=== PATIENT | female | born 1940 | race Caucasian/White ===

== ENCOUNTER → 2017-05-28 11:27 | Outpatient (CLI) | payer MEDICARE, OTHER, SELFPAY ==
[2017-05-28 12:48] LABS: Absolute Lymphocyte Count 2.38 X10^3/ul (0.83-4.51); Absolute Neutrophil Count 5.3 X10^3/uL (2.0-7.7); Basophil# 0.02 X10^3/uL; Basophil% 0.2 % (0-1); Eosinophil# 0.09 X10^3/uL; Eosinophils% 1.1 % (0-5); Hematocrit 42.1 % (37-47); Lymphocyte # 2.38 X10^3/ul (4.0); Lymphocyte % 27.9 % (19-41); Mean Corp Hgb Conc 33.3 g/gl (32-36); Mean Corpuscular Hgb 32.1 pg (27.0-32.0); Mean Corpuscular Volume 96.6 fL (81-99); Mean Platelet Vol. 10.5 fl (6.2-12.0); Monocyte# 0.77 X10^3/uL; Neutrophil # 5.27 X10^3/uL (2.7-7.7); Neutrophil % 61.7 % (47-70); Platelet Count 273 K/mm3 (150-450); RBC Distribution Width CV 12.1 % (11.6-14.6); RBC Distribution Width SD 41.6 fl (35.1-43.9); Red Blood Count 4.36 M/mm3 (4.2-5.4); White Blood Count 8.5 K/mm3 (4.4-11.0)
[2017-05-28 13:00] LABS: POSITIVE COUNT NO; POSITIVE DIFFERENTIAL NO; POSITIVE MORPHOLOGY NO
[2017-05-28 13:09] LABS: Vitamin D,25 Hydroxy 44.4 ng/mL (29.95-100.01)
[2017-05-28 13:11] LABS: AST(SGOT) 18 U/L (15-37); Alanine Aminotransfer ALT/SGPT 21 U/L (13-56); Albumin, Serum 3.6 g/dL (3.2-5.0); Alkaline Phosphatase 175 U/L (45-117); Anion Gap 7 (5-15); BUN 11 mg/dL (7-18); BUN/Creat Ratio 14.5 RATIO (10-20); Calcium,Total 9.1 mg/dL (8.5-10.1); Chloride 105 mmol/L (98-107); Creatinine, Serum 0.76 mg/dL (0.55-1.02); EST Glomerular Filtration Rate 78 mL/min (>60); Est Glom Filt Rate - Afr Amer 95 mL/min (>60); Globulin 3.6 g/dL (2.2-4.2); Glucose 91 mg/dL (74-106); Potassium 3.7 mmol/L (3.5-5.1); Protein, Total 7.2 g/dL (6.4-8.2); Sodium Level 141 mmol/L (136-145); Thyroid Stim Hormone (TSH) 0.94 uIU/mL (0.358-3.74)
== END ==
PROVIDERS: Family Provider Family Medicine Geriatric Medicine; PCP Family Medicine Geriatric Medicine; Visit Provider Family Medicine Geriatric Medicine
DX: R53.83 Other fatigue (principal); E55.9 Vitamin D deficiency, unspecified
CPT/HCPCS: 36415; 80053; 82306; 84443; 85025

== ENCOUNTER → 2017-12-10 12:59 | Outpatient (CLI) | payer MEDICARE, OTHER, SELFPAY | PROVIDERS: Family Provider Family Medicine Geriatric Medicine; PCP Family Medicine Geriatric Medicine; Visit Provider Family Medicine Geriatric Medicine | DX: N39.0 Urinary tract infection, site not specified (principal) | CPT/HCPCS: 87086; 87088 ==

== ENCOUNTER → 2017-12-15 13:53 | Outpatient (CLI) | payer MEDICARE, OTHER, SELFPAY ==
[2017-12-15 17:39] LABS: Absolute Lymphocyte Count 3.03 X10^3/ul (0.83-4.51); Absolute Neutrophil Count 3.9 X10^3/uL (2.0-7.7); Basophil# 0.03 X10^3/uL; Basophil% 0.4 % (0-1); Eosinophils% 1.3 % (0-5); Hematocrit 43.9 % (37-47); Hemoglobin 14.8 g/dl (12.0-15.0); Lymphocyte # 3.03 X10^3/ul (4.0); Lymphocyte % 38.8 % (19-41); Mean Corp Hgb Conc 33.7 g/gl (32-36); Mean Corpuscular Hgb 31.9 pg (27.0-32.0); Mean Corpuscular Volume 94.6 fL (81-99); Mean Platelet Vol. 10.9 fl (6.2-12.0); Monocyte# 0.78 X10^3/uL; Neutrophil # 3.86 X10^3/uL (2.7-7.7); Neutrophil % 49.4 % (47-70); Platelet Count 260 K/mm3 (150-450); RBC Distribution Width CV 12.6 % (11.6-14.6); RBC Distribution Width SD 42.5 fl (35.1-43.9); Red Blood Count 4.64 M/mm3 (4.2-5.4); White Blood Count 7.8 K/mm3 (4.4-11.0)
[2017-12-15 17:42] LABS: POSITIVE COUNT NO; POSITIVE DIFFERENTIAL NO; POSITIVE MORPHOLOGY NO
[2017-12-15 18:13] LABS: AST(SGOT) 21 U/L (15-37); Alanine Aminotransfer ALT/SGPT 27 U/L (13-56); Alkaline Phosphatase 168 U/L (45-117); Anion Gap 10 (5-15); BUN 14 mg/dL (7-18); BUN/Creat Ratio 18.5 RATIO (10-20); Calcium,Total 9.4 mg/dL (8.5-10.1); Chloride 103 mmol/L (98-107); Creatinine, Serum 0.76 mg/dL (0.55-1.02); EST Glomerular Filtration Rate 79 mL/min (>60); Est Glom Filt Rate - Afr Amer 95 mL/min (>60); Globulin 3.9 g/dL (2.2-4.2); Glucose 84 mg/dL (74-106); Potassium 3.6 mmol/L (3.5-5.1); Protein, Total 7.9 g/dL (6.4-8.2); Sodium Level 142 mmol/L (136-145)
[2017-12-15 18:21] LABS: Vitamin D,25 Hydroxy 51.6 ng/mL (29.95-100.01)
== END ==
PROVIDERS: Family Provider Family Medicine Geriatric Medicine; PCP Family Medicine Geriatric Medicine; Visit Provider Family Medicine Geriatric Medicine
DX: R53.83 Other fatigue (principal); E55.9 Vitamin D deficiency, unspecified
CPT/HCPCS: 36415; 80053; 82306; 84443; 85025

== ENCOUNTER → 2018-03-30 13:38 | Outpatient (CLI) | payer MEDICARE, OTHER, SELFPAY ==
[2018-03-25 12:07] VITALS: BMI 27.8
--- NOTE | 2018-03-30 15:42 | CT_ITS ---
STUDY: CT BRAIN WITHOUT CONTRAST REASON FOR EXAM: Female, 78 years old. Delirium. History of stroke and seizures. RADIATION DOSAGE (If Supplied By Facility): CTDIvol = ( 60.81 ) mGy, DLP = ( 998.67 ) mGycm TECHNIQUE: Transaxial CT imaging of the brain was performed without administration of intravenous contrast material. Individualized dose optimization techniques were used for this CT. COMPARISON: Noncontrast CT brain October 18, 2015 FINDINGS: Normal soft tissue structures. Normal calvarium. Incidental note of severe osteoarthritic degenerative change at the left temporomandibular joint. There is mild cerebral atrophy with widening of the extra-axial spaces and ventricular dilatation. Normal white matter tracts of the cerebral hemispheres. Normal basal ganglia and thalami. Normal brainstem. Normal cerebellum. There is no intracranial hemorrhage. There are old cortical infarcts in the left frontal and posterior parietal lobes, the latter in particular associated with ex vacuo dilatation of the posterior horn of the left lateral ventricle. There are no findings of an acute ischemic infarction. There is a fluid level in the left sphenoid sinus. The remaining paranasal sinuses are clear. CT/Brain/Head without Contrast IMPRESSION: 1. Stable old left frontal and posterior parietal infarcts. No acute intracranial pathology. 2. There are chronic involutional changes of the brain. 3. Acute left sphenoid sinusitis. 4. 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 Electronically Signed: Contreras Boateng MD at 16:29 EST , Service support ,
[2018-03-30 18:15] LABS: ALB/GLOB Ratio 1.1 RATIO (0.9-2.4); AST(SGOT) 21 U/L (15-37); Alanine Aminotransfer ALT/SGPT 26 U/L (13-56); Albumin, Serum 3.8 g/dL (3.2-5.0); Alkaline Phosphatase 152 U/L (45-117); Anion Gap 8 (5-15); BUN 11 mg/dL (7-18); BUN/Creat Ratio 13.7 RATIO (10-20); Calcium,Total 9.1 mg/dL (8.5-10.1); Chloride 105 mmol/L (98-107); EST Glomerular Filtration Rate 73 mL/min (>60); Est Glom Filt Rate - Afr Amer 89 mL/min (>60); Globulin 3.4 g/dL (2.2-4.2); Glucose 110 mg/dL (74-106); Potassium 4.2 mmol/L (3.5-5.1); Protein, Total 7.2 g/dL (6.4-8.2); Sodium Level 140 mmol/L (136-145); Thyroid Stim Hormone (TSH) 0.92 uIU/mL (0.358-3.74)
[2018-03-30 18:16] LABS: Absolute Lymphocyte Count 2.38 X10^3/ul (0.83-4.51); Absolute Neutrophil Count 4.5 X10^3/uL (2.0-7.7); Basophil# 0.03 X10^3/uL; Basophil% 0.4 % (0-1); Eosinophils% 1.3 % (0-5); Hematocrit 44.1 % (37-47); Hemoglobin 14.6 g/dl (12.0-15.0); Lymphocyte # 2.38 X10^3/ul (4.0); Lymphocyte % 30.8 % (19-41); Mean Corp Hgb Conc 33.1 g/gl (32-36); Mean Corpuscular Hgb 31.8 pg (27.0-32.0); Mean Corpuscular Volume 96.1 fL (81-99); Mean Platelet Vol. 11.2 fl (6.2-12.0); Monocyte# 0.71 X10^3/uL; Monocyte% 9.2 % (0-10); Neutrophil % 58.2 % (47-70); Platelet Count 239 K/mm3 (150-450); RBC Distribution Width CV 12.8 % (11.6-14.6); RBC Distribution Width SD 44.1 fl (35.1-43.9); Red Blood Count 4.59 M/mm3 (4.2-5.4); White Blood Count 7.7 K/mm3 (4.4-11.0)
[2018-03-30 18:23] LABS: POSITIVE COUNT NO; POSITIVE DIFFERENTIAL NO; POSITIVE MORPHOLOGY NO
== END ==
PROVIDERS: Family Provider Family Medicine Geriatric Medicine; PCP Family Medicine Geriatric Medicine; Referring Provider Family Medicine Geriatric Medicine; Visit Provider Family Medicine Geriatric Medicine
DX: R53.83 Other fatigue (principal); R51 Headache; R41.0 Disorientation, unspecified
CPT/HCPCS: 36415; 70450; 80053; 84443; 85025

== ENCOUNTER → 2018-05-20 12:43 | Outpatient (CLI) | payer MEDICARE, OTHER, SELFPAY ==
[2018-03-25 12:07] VITALS: BMI 27.8
== END ==
PROVIDERS: Family Provider Family Medicine Geriatric Medicine; PCP Family Medicine Geriatric Medicine; Referring Provider Family Medicine Geriatric Medicine; Visit Provider Family Medicine Geriatric Medicine
DX: R68.83 Chills (without fever) (principal)
CPT/HCPCS: 87633

== ENCOUNTER → 2018-06-15 14:04 | Outpatient (CLI) | payer MEDICARE, OTHER, SELFPAY ==
[2018-03-25 12:07] VITALS: BMI 27.8
[2018-06-15 15:18] LABS: Absolute Lymphocyte Count 2.76 X10^3/ul (0.83-4.51); Absolute Neutrophil Count 4.2 X10^3/uL (2.0-7.7); Basophil# 0.02 X10^3/uL; Basophil% 0.3 % (0-1); Eosinophil# 0.12 X10^3/uL; Eosinophils% 1.5 % (0-5); Hematocrit 44.4 % (37-47); Hemoglobin 14.6 g/dl (12.0-15.0); Lymphocyte # 2.76 X10^3/ul (4.0); Lymphocyte % 35.4 % (19-41); Mean Corp Hgb Conc 32.9 g/gl (32-36); Mean Corpuscular Hgb 32.1 pg (27.0-32.0); Mean Corpuscular Volume 97.6 fL (81-99); Mean Platelet Vol. 10.6 fl (6.2-12.0); Monocyte# 0.72 X10^3/uL; Monocyte% 9.2 % (0-10); Neutrophil # 4.17 X10^3/uL (2.7-7.7); Neutrophil % 53.5 % (47-70); Platelet Count 243 K/mm3 (150-450); RBC Distribution Width CV 13.4 % (11.6-14.6); RBC Distribution Width SD 47.5 fl (35.1-43.9); Red Blood Count 4.55 M/mm3 (4.2-5.4); White Blood Count 7.8 K/mm3 (4.4-11.0)
[2018-06-15 15:23] LABS: POSITIVE COUNT NO; POSITIVE DIFFERENTIAL NO; POSITIVE MORPHOLOGY NO
[2018-06-15 15:47] LABS: ALB/GLOB Ratio 1.1 RATIO (0.9-2.4); AST(SGOT) 26 U/L (15-37); Alanine Aminotransfer ALT/SGPT 28 U/L (13-56); Albumin, Serum 3.8 g/dL (3.2-5.0); Alkaline Phosphatase 133 U/L (45-117); Anion Gap 8 (5-15); BUN 13 mg/dL (7-18); BUN/Creat Ratio 14.6 RATIO (10-20); Calcium,Total 9.2 mg/dL (8.5-10.1); Chloride 107 mmol/L (98-107); Creatinine, Serum 0.89 mg/dL (0.55-1.02); EST Glomerular Filtration Rate 65 mL/min (>60); Est Glom Filt Rate - Afr Amer 79 mL/min (>60); Globulin 3.5 g/dL (2.2-4.2); Glucose 114 mg/dL (74-106); Potassium 4.2 mmol/L (3.5-5.1); Protein, Total 7.3 g/dL (6.4-8.2); Sodium Level 144 mmol/L (136-145); Thyroid Stim Hormone (TSH) 0.76 uIU/mL (0.358-3.74)
[2018-06-15 16:13] LABS: Vitamin D,25 Hydroxy 48.5 ng/mL (29.95-100.01)
== END ==
PROVIDERS: Family Provider Family Medicine Geriatric Medicine; PCP Family Medicine Geriatric Medicine; Visit Provider Family Medicine Geriatric Medicine
DX: E55.9 Vitamin D deficiency, unspecified (principal); R53.83 Other fatigue
CPT/HCPCS: 36415; 80053; 82306; 84443; 85025

== ENCOUNTER 2018-09-18 21:43 | Emergency (ER) | payer MEDICARE, OTHER, SELFPAY ==
[2018-03-25 12:07] VITALS: BMI 27.8
[2018-09-18 21:51] VITALS: BP 137/61; PULSE 77; RESP 16; TEMP 36.9; O2SAT 95; BMI 28.4
[2018-09-18 21:55] VITALS: O2SAT 95
--- NOTE | 2018-09-18 22:34 | RAD_ITS ---
HISTORY: pain after fall COMPARISON: None FINDINGS: # of images incl. paperwork: 3 3 views of the lumbar spine. 3 views of the lumbar spine. Comparison study is from January 22, 2017. Findings: Posterior spinal fixation of the L3-L4 and L5 levels with fusion across the intervertebral disc spaces unchanged. Laminectomies at L3 and L4 are unchanged. Degenerative disc disease at the lower thoracic and the upper lumbar spine remain severe. Facet arthropathy remains. Atherosclerotic plaque within the abdominal aorta remains. Left hip prosthesis remains. RAD/Lumbar Spine 2 or 3 Views IMPRESSION: No change. Severe multilevel degenerative disc disease. Preservation of vertebral body height. Posterior spinal fixation with laminectomies unchanged. at 2338 Reported and signed by: Rigoberto Wiley MD Electronically Signed: Rigoberto Wilye MD at 23:37 EDT Tel , Service support ,
--- NOTE | 2018-09-18 22:34 | RAD_ITS ---
HISTORY: pain after fall COMPARISON: None FINDINGS: # of images incl. paperwork: 3 XR Wrist Min 3 Views : Bone mineral density is diminished. Arthritis is severe first carpometacarpal joint with joint space loss, subluxation, osteophytes, and corticated ossicles. No fractures perceived. RAD/Wrist min 3 Views IMPRESSION: No acute fracture or traumatic subluxation. Soft tissue swelling greater over the dorsum of the distal forearm. Osteoporosis. First carpometacarpal osteoarthritis. at 2355 Reported and signed by: Rigoberto Wiley MD Electronically Signed: Rigoberto Wiley MD at 23:54 EDT Tel , Service support ,
--- NOTE | 2018-09-18 23:10 | RAD_ITS ---
HISTORY: pain after fall EXAM: AP pelvis and 2 views of the left hip COMPARISON: None FINDINGS: # of images incl. paperwork: 3 Left total hip prosthesis remains in place. No evidence of dislocation or osseus fracture about the prosthesis. Extensive posterior spinal fixation surgery L3-L5 with fusion across the disc spaces and old laminectomies at L3 and L4. Severe right hip arthritis with erosion sclerosis and osteophytes. Enthesophytes on the ischial tuberosities. No sacral acute fractures are perceived. RAD/HIP, UNI W/ Pelvis 2-3 Views IMPRESSION: Left total hip prosthesis without acute fracture or dislocation. at 2356 Reported and signed by: Rigoberto Wiley MD Electronically Signed: Rigoberto Wiley MD at 23:55 EDT Tel , Service support ,
[2018-09-18] MEDS: Acetaminophen 500 MG Tablet 1000 MG PO (23:34)
--- NOTE | 2018-09-19 00:18 | ED.DCSUM_ITS ---
- ER Visit Summary Date of Service: 09/19/18 Chief Complaint: Left wrist and hip pain History of Present Illness: The patient is a 78 F who has left wrist and hip pain. Started today. She fell down 3 steps at home. She was walking backwards down the steps when she fell. She has pain in the left wrist and hip area. It radiates into her back. She denies any head trauma or LOC. She is on Plavix. She had a left hip replaced previously as well. Physical Examination: Vital signs reviewed. HEENT exam is atraumatic. Abdomen soft and nontender. Her lumbar spine is diffusely tender. She has some tenderness in the left hip and left wrist. She has painful range of motion of both joints. Her left leg is not shortened. Her GCS is 15. Her neurologic exam is normal. Test Results: X-rays of the left hip, wrist and lumbar spine reveal no evidence of fracture. There are degenerative joints and into these areas. Emergency Department Course and Treatment: The patient was given Tylenol and felt improved. She will ice any areas that are sore. She was ambulated in the emergency department. She will continue Tylenol at night at home. She will follow-up with her PCP. Treatment Plan: [] Disposition: Discharge Impression: Lumbar contusion, left hip contusion, left wrist sprain This note was generated with [employer] dictation software. It may contain incorrect words, spelling, and punctuation that were not noted in review of the chart prior to signing ED Disposition - Plan for ED Patient: Referrals: Rashawn Walsh Chi, MD [Primary Care Provider] -
--- NOTE | 2018-09-19 00:20 | ED.DEP ---
ED Disposition - Plan for ED Patient: Disposition: Home or Assisted Living Instructions: FALL, Mechanical Referrals: Rashawn Walsh Chi, MD [Primary Care Provider] -
[2018-09-19 00:48] VITALS: BP 126/91; PULSE 71; RESP 15; O2SAT 95
== END 2018-09-19 00:49 | disposition home or self-care (01) ==
PROVIDERS: Emergency Provider Emergency Medicine; Family Provider Family Medicine Geriatric Medicine; PCP Family Medicine Geriatric Medicine
DX: S63.502A Unspecified sprain of left wrist, initial encounter (principal); S30.0XXA Contusion of lower back and pelvis, initial encounter; S70.02XA Contusion of left hip, initial encounter; W10.9XXA Fall (on) (from) unspecified stairs and steps, initial encounter; Y93.01 Activity, walking, marching and hiking; Y92.9 Unspecified place or not applicable; Y99.9 Unspecified external cause status; F03.90 Unspecified dementia, unspecified severity, without behavioral disturbance, psychotic disturbance, mood disturbance, and anxiety; K21.9 Gastro-esophageal reflux disease without esophagitis; Z79.02 Long term (current) use of antithrombotics/antiplatelets; Z79.899 Other long term (current) drug therapy; Z86.73 Personal history of transient ischemic attack (TIA), and cerebral infarction without residual deficits; Z96.642 Presence of left artificial hip joint
CPT/HCPCS: 72100; 73110; 73502; 99284; A4216

== ENCOUNTER → 2018-09-28 14:33 | Outpatient (CLI) | payer MEDICARE, OTHER, SELFPAY ==
[2018-09-18 21:51] VITALS: BMI 28.4
--- NOTE | 2018-09-28 14:45 | CT_ITS ---
STUDY: LEFT HIP CT SCAN REASON FOR EXAM: Female, 78 years old. Left hip pain. Fall. RADIATION DOSAGE (If Supplied By Facility): CTDIvol = ( 19.20 ) mGy, DLP = ( 823.37 ) mGycm. Individualized dose optimization techniques were used for this CT.? TECHNIQUE: Axial multidetector CT scan of the left hip. Coronal and sagittal recommend images. COMPARISON: September 18, 2018. FINDINGS: Acute/subacute nondisplaced left inferior pubic ramus fracture (axial image 85 series 3). Acute/subacute nondisplaced left superior pubic ramus fracture extending to the anterior medial margin of the left acetabulum (axial images 62 through 71 series 3 and coronal image 40 series 602). No dislocation. No acute cortical destruction. Left hip arthroplasty intact/well aligned. No evidence of hardware failure loosening. Moderate pubic symphysis arthrosis. Mild sacroiliac joint arthrosis. Moderate lumbar spine arthrosis with multilevel laminectomy and surgical fixation. Mild soft tissue swelling at the left hip without focal hematoma or active bleeding. Mild soft tissue swelling at the left adductor muscles. Mild soft tissue swelling at the left obturator internus. Left gluteus minimus muscle atrophy. Surgical scar. Vascular calcifications. Slightly atrophic uterus. Normal urinary bladder. Normal visualized portions of the bowel. CT/Extremity Lower without Contra IMPRESSION: Acute/subacute nondisplaced left superior and inferior pubic ramus fractures Left hip arthroplasty intact/well aligned without hardware failure or loosening Soft tissue and muscle edema without significant hematoma or active bleeding Mild left gluteus minimus muscle atrophy Additional degenerative/postsurgical changes, as above Electronically Signed: Hollis Gil DO at 15:34 EDT Tel , Service support ,
--- NOTE | 2018-09-28 14:46 | RAD_ITS ---
STUDY: X-RAY - LEFT KNEE REASON FOR EXAM: Female, 78 years old. Fall. Pain. TECHNIQUE: 3 view(s) of the knee. COMPARISON: None. FINDINGS: There is no evidence of fracture or dislocation. The patient is status post left knee arthroplasty. The hardware is intact and alignment is satisfactory. There are no radiodense foreign bodies. RAD/Knee 3 Views IMPRESSION: Status post left knee arthroplasty with intact hardware in satisfactory alignment. No fracture or dislocation. Electronically Signed: Andreas Harmon, at 17:46 EDT Tel , Service support ,
== END ==
PROVIDERS: Family Provider Family Medicine Geriatric Medicine; PCP Family Medicine Geriatric Medicine; Referring Provider Family Medicine Geriatric Medicine; Visit Provider Family Medicine Geriatric Medicine
DX: N39.0 Urinary tract infection, site not specified (principal); M25.569 Pain in unspecified knee; M25.559 Pain in unspecified hip
CPT/HCPCS: 73562; 73700; 87086; 87088

== ENCOUNTER → 2018-12-16 13:38 | Outpatient (CLI) | payer MEDICARE, OTHER, SELFPAY ==
[2018-12-16 15:42] LABS: Absolute Lymphocyte Count 2.31 X10^3/uL (0.83-4.51); Absolute Neutrophil Count 5.3 X10^3/uL (2.0-7.7); Basophil# 0.03 X10^3/uL; Basophil% 0.3 % (0-1); Eosinophil# 0.09 X10^3/uL; Hematocrit 46.2 % (37-47); Hemoglobin 14.7 g/dL (12.0-15.0); Lymphocyte # 2.31 X10^3/ul (4.0); Lymphocyte % 26.6 % (19-41); Mean Corp Hgb Conc 31.8 g/dL (32-36); Mean Corpuscular Hgb 31.1 pg (27.0-32.0); Mean Corpuscular Volume 97.9 fL (81-99); Mean Platelet Vol. 11.1 fl (6.2-12.0); Monocyte# 0.98 X10^3/uL; Monocyte% 11.3 % (0-10); NRBC Flagged by Analyzer 0 % (0-5); Neutrophil # 5.27 X10^3/uL (2.7-7.7); Neutrophil % 60.6 % (47-70); Platelet Count 260 K/mm3 (150-450); RBC Distribution Width CV 12.2 % (11.6-14.6); RBC Distribution Width SD 44.3 fl (35.1-43.9); Red Blood Count 4.72 M/mm3 (4.2-5.4); White Blood Count 8.7 K/mm3 (4.4-11.0)
[2018-12-16 16:05] LABS: AST(SGOT) 23 U/L (15-37); Alanine Aminotransfer ALT/SGPT 31 U/L (13-56); Albumin, Serum 3.7 g/dL (3.2-5.0); Alkaline Phosphatase 201 U/L (45-117); Anion Gap 7 (5-15); BUN 13 mg/dL (7-18); BUN/Creat Ratio 16.6 RATIO (10-20); Calcium,Total 9.3 mg/dL (8.5-10.1); Chloride 104 mmol/L (98-107); Creatinine, Serum 0.78 mg/dL (0.55-1.02); EST Glomerular Filtration Rate 75 mL/min (>60); Est Glom Filt Rate - Afr Amer 91 mL/min (>60); Globulin 3.8 g/dL (2.2-4.2); Glucose 75 mg/dL (74-106); Potassium 3.9 mmol/L (3.5-5.1); Protein, Total 7.5 g/dL (6.4-8.2); Sodium Level 143 mmol/L (136-145); Thyroid Stim Hormone (TSH) 1.03 uIU/mL (0.358-3.74)
== END ==
PROVIDERS: Family Provider Family Medicine Geriatric Medicine; PCP Family Medicine Geriatric Medicine; Visit Provider Family Medicine Geriatric Medicine
DX: E55.9 Vitamin D deficiency, unspecified (principal); R53.83 Other fatigue
CPT/HCPCS: 36415; 80053; 82306; 84443; 85025

== ENCOUNTER → 2019-05-24 16:30 | Outpatient (CLI) | payer MEDICARE, SELFPAY | PROVIDERS: PCP Family Medicine Geriatric Medicine; Visit Provider Family Medicine Geriatric Medicine | DX: N39.0 Urinary tract infection, site not specified (principal) | CPT/HCPCS: 87086; 87088; 87186 ==

== ENCOUNTER → 2020-01-03 | Outpatient (CLI) | payer MEDICARE, SELFPAY ==
[2020-01-03 14:44] VITALS: BMI 28.4
[2020-01-03 14:55] LABS: Bacteria 0 SEEN /hpf (None Seen); Red Blood Cells-Urine 0 SEEN /hpf (0-5)
[2020-01-03 17:25] LABS: Color, Urine Yellow (Yellow); Glucose, Dipstick Normal (Normal); Ketone-Dipstick Negative (Negative); Leukocyte Esterase-Dipstick 100 /ul (Negative); Nitrite-Dipstick Negative (Negative); Occult Blood-Urine 25 /ul (Negative); Protein-Dipstick 15 mg/dl (Negative); Urine Bilirubin Dipstick Negative (Negative); Urine Clarity Clear (Clear); Urine Urobilinogen Normal (Normal)
[2020-01-03 17:47] LABS: Mucous, Urine 1+ /hpf (<or=2+); Squamous Epithelial Cells - UA 0-5 SEEN /hpf (5-10); White Blood Cells 0-5 SEEN /hpf (0-5)
== END | disposition home or self-care (01) ==
LOC: LABSPEC 14:54
PROVIDERS: PCP Internal Medicine; Referring Provider Internal Medicine; Visit Provider Internal Medicine
DX: R30.0 Dysuria (principal); R35.0 Frequency of micturition
CPT/HCPCS: 81001; 87086

== ENCOUNTER 2020-01-04 14:19 | Inpatient (IN) | payer MEDICARE, SELFPAY ==
[2020-01-03 14:44] VITALS: BMI 28.4
[2020-01-04] VITALS (7 sets, daily range): BP systolic 114–138; BP diastolic 64–88; PULSE 87–110; RESP 16–22; TEMP 35.9–36.9; O2SAT 94–98; BMI 28.0; BMI 27.2
--- NOTE | 2020-01-04 14:31 | CT_ITS ---
STUDY: CT BRAIN WITHOUT CONTRAST REASON FOR EXAM: Female, 79 years old. FALL, +LOC, HX-HEMORRHAGIC STROKE RADIATION DOSAGE (If Supplied By Facility): CTDIvol = ( 44.99 ) mGy, DLP = ( 728.62 ) mGycm TECHNIQUE: Transaxial CT imaging of the brain was performed without administration of intravenous contrast material. Individualized dose optimization techniques were used for this CT. COMPARISON: Comparison is made with prior study dated 03/30/2018. FINDINGS: Normal soft tissue structures. Normal calvarium. There is mild cerebral atrophy with widening of the extra-axial spaces and ventricular dilatation. There are areas of decreased attenuation within the white matter tracts of the supratentorial brain, consistent with microvascular disease changes. Stable encephalomalacia in the right temporal lobe as well as in the posterior aspect of the left parietal occipital lobe and left frontal lobe. Normal basal ganglia and thalami. Normal brainstem. Normal cerebellum. There is no intracranial hemorrhage. There are no findings of an acute ischemic infarction. Small amount of fluid in the left sphenoid sinus. CT/Brain/Head without Contrast IMPRESSION: Stable examination. Electronically Signed: Theo Weller, at 15:49 EDT , Service support ,
--- NOTE | 2020-01-04 14:31 | EKG12_ITS ---
Test Reason : FALL Blood Pressure : / mmHG Vent. Rate : 091 BPM Atrial Rate : 091 BPM P-R Int : 098 ms QRS Dur : 076 ms QT Int : 388 ms P-R-T Axes : 024 065 071 degrees QTc Int : 477 ms Sinus rhythm with short [place] Nonspecific ST abnormality Abnormal ECG Confirmed by ANNA STAFFORD, RIGO ([id number]), production editor YE CABRERA ([id number]) on 01/10/2020 8:48:39 A M Referred By: ENOCH Confirmed By:JEFFRY CASTILLO MD
--- NOTE | 2020-01-04 14:33 | ED.DCSUM_ITS ---
History of Present Illness Chief Complaint: Fall Informant: Patient, Significant Other Onset: Today, Hours - Fell at 0930. She is been on the floor since that time according the . She is not a good informant. Mechanism/Context: Blunt Injury, Fall Quality of Pain: Dull, Aching, Throbbing Location: Right hip, right leg and head Current Severity: Mild Maximum Severity: Severe Worsened by: Attempt to weight bear right lower extremity Relieved by: Nothing Associated Symptoms: Inability to ambulate, Loss of consciousness, Amnesia Length of loss of consciousness: Brief Narrative: Patient is a 79-year-old woman who presents to the emergency room after mechanical fall at 0930. states he made many attempts to get her up from the floor, and he was unsuccessful. There was loss of conscious. She is amnestic. She does complain of head pain. She is on Plavix. She states she saw a bolt of lightening after hitting her head. She denies neck pain. She denies chest pain or shortness of breath. She denies nausea or vomiting. She denies urinary symptoms. She does complain of right hip pain and right leg pain. She denies paresthesia, anesthesia or motor weakness. Prior similar symptoms: No Recent Illness/Hospitalization: No - Past Medical History (1) Depression Status: Acute (2) Other and unspecified hyperlipidemia Status: Acute (3) CVA (cerebral vascular accident) Status: Chronic (4) DDD (degenerative disc disease), lumbar Status: Chronic (5) Hyperlipidemia Status: Chronic (6) Osteoarthritis Status: Chronic (7) Short-term memory loss Status: Chronic (8) history of hemorrhagic stroke Status: Chronic Comment: 11/2009 Past Medical History - Allergies and Home Meds Allergies/Adverse Reactions: Allergies No Known Allergies Allergy (Verified 01/04/20 14:28) Primary Care Physician: Geovanna Hurtado MD [Primary Care Provider] - Prior records reviewed: Yes Surgical History: noncontributory Lives: Spouse/ Significant Other Smoking Status: Former smoker Alcohol: None Drugs: None Review of Systems ROS: Unable to Obtain - Limited secondary to memory impairment General: Denies: Chills, Fever Eyes: Reports: - - Saw a bolt of lightening. Denies: Visual changes - bilaterally, Blurred Vision - bilaterally ENT: Denies: Rhinorrhea, Sore throat Cardiovascular: Denies: Chest pain, Palpitations Respiratory: Denies: Dyspnea, Cough, Dyspnea on exertion Gastrointestinal: Denies: Abdominal pain, Nausea, Vomiting Genitourinary: Denies: Dysuria, Hematuria, Frequency Musculoskeletal: Reports: Extremity Pain. Denies: Neck pain, Back pain, Swelling Neurological: Reports: Headache. Denies: Weakness, Parasthesia Psych: Reports: Depression, Anxiety Endocrine: Denies: Polyuria, Polydipsia Hematologic: Reports: Easy bruising Physical Exam Vital Signs/Narrative: Vital Signs Temp Pulse Resp BP Pulse Ox 01/04/20 14:20 96.7 F L 91 22 H 138/86 H 96 Inital Vital Signs reviewed: Yes General: Well nourished, Well developed Head: Normocephalic, Trauma, Tenderness - Forehead near hairline, - - No clinical evidence of basilar skull fracture. Eyes: Perrl, EOMI, - - No subconjunctival hemorrhage.. Negative for: Pale conjunctiva, Scleral icterus ENT: TM's clear, No hemotympanum or drainage, No trauma. Negative for: Hemotympanum, Otorrhea, Nasal trauma, Nasal septal hematoma Neck: Nontender, Full ROM. Negative for: Spinal Tenderness, Paraspinal Tenderness Cardiovascular: Regular rate, Regular rhythm, No murmurs, Normal S1, Normal S2 Respiratory: No distress, CTA bilaterally, Chest nontender Abdomen: Soft, Nontender, Nondistended, Normal bowel sounds, - - Is no pain the patient of the pelvis. Rectal: Deferred Back: Nontender. Negative for: CVA Tenderness - Right, CVA Tenderness - Left Extremeties: There is pain palpation over the right her greater trochanteric region and she complains of pain she localized to the hip region with logrolling. There appears to be slight shortening of the right lower extremity. There is no pain the patient of the the thigh. There is no pain the patient of the knee. The patella is not ballotable. There is no effusion. There is no joint line tenderness. There is no evidence of trauma. Patient does have a large bruise over the mid anterior right leg with tenderness over the right tibia and fibula. There is no pain the patient over the lateral mid malleolus. Is no pain ovation over the calcaneus, midfoot, tarsal bones or phalanges. DP and PT pulse are palpable. Skin: Normal color, No rash, Trauma. Negative for: Cyanosis, Diaphoresis, Jaundice Neurological: Cranial nerves II-XII grossly intact, Normal Strength, Normal Sensation. Negative for: Alert, Oriented x3 Psychological: Depressed - Glascow Coma Scale Eye Opening: Spontaneous Motor: Obeys Commands Verbal: Confused Coma Scale Total: 14 Diagnostic/Tx/Re-eval Impressions Brain CT 01/04/20 14:31 IMPRESSION: Stable examination. Electronically Signed: Theo Janee, at 15:49 EDT , Service support , Hip/Pelvis X-Ray 01/04/20 14:33 IMPRESSION: Marked degree of joint space narrowing involving the right hip joint with marginal degenerative spurs of the femoral head. The patient is status post left hip replacement. Electronically Signed: Theo Weller, at 15:50 EDT , Service support , Tibia/Fibula X-Ray 01/04/20 14:33 IMPRESSION: No acute abnormality is seen. Electronically Signed: Theo Weller, at 15:51 EDT , Service support , Chest X-Ray 01/04/20 17:08 IMPRESSION: Normal x-ray examination of the chest. Electronically Signed: Noe Dey MD at 17:27 EDT Tel , Service support , 01/04/20 14:31 Brain/Head without Contrast [CT] Stat 01/04/20 14:33 HIP, UNI W/ Pelvis 2-3 Views [RAD] Stat Tibia & Fibula 2 Views [RAD] Stat 01/04/20 17:08 Chest 1 View (Portable) [RAD] Stat Laboratory Results 01/04/20 01/04/20 01/04/20 14:50 14:50 14:50 WBC 21.4 H RBC 4.10 L Hgb 13.0 Hct 40.0 MCV 97.6 MCH 31.7 MCHC 32.5 RDW Std Deviation 44.5 H RDW Coeff of Marlena 12.2 Plt Count 288 MPV 10.6 Immature Gran % (Auto) 0.700 Neut % (Auto) 87.7 H Lymph % (Auto) 5.8 L [place] % (Auto) 5.3 Eos % (Auto) 0.4 Baso % (Auto) 0.1 Absolute Neuts (auto) 18.8 H Absolute Lymphs (auto) 1.25 Nucleated RBC % 0 Sodium 142 Potassium 3.6 Chloride 109 H Carbon Dioxide 24.0 Anion Gap 9 BUN 19 H Creatinine 1.07 H Estim Creat Clear Calc 33.72 Est GFR (MDRD) Af Amer 64 Est GFR (MDRD) Non-Af 53 L BUN/Creatinine Ratio 17.8 Glucose 175 H Lactic Acid Calcium 9.5 Total Creatine Kinase 357 H Urine Color Urine Clarity Urine pH Ur Specific [place] Urine Protein Urine Glucose (UA) Urine Ketones Urine Occult Blood Urine Nitrite Urine Bilirubin Urine Urobilinogen Ur Leukocyte Esterase Urine RBC Urine WBC Ur Squamous Epith Cells Calcium Oxalate Crystal Amorphous Sediment Urine Bacteria Hyaline Casts Urine Mucus 01/04/20 01/04/20 15:57 16:15 WBC RBC Hgb Hct MCV MCH MCHC RDW Std Deviation RDW Coeff of [place]len[place] Plt Count MPV Immature Gran % (Auto) Neut % (Auto) Lymph % (Auto) [place] % (Auto) Eos % (Auto) Baso % (Auto) Absolute Neuts (auto) Absolute Lymphs (auto) Nucleated RBC % Sodium Potassium Chloride Carbon Dioxide Anion Gap BUN Creatinine Estim Creat Clear Calc Est GFR (MDRD) Af Amer Est GFR (MDRD) Non-Af BUN/Creatinine Ratio Glucose Lactic Acid 3.9 H* Calcium Total Creatine Kinase Urine Color Yellow Urine Clarity Clear Urine pH 5.0 Ur Specific [place] 1.030 Urine Protein 30 H Urine Glucose (UA) Normal Urine Ketones 5 H Urine Occult Blood 10 H Urine Nitrite Negative Urine Bilirubin Negative Urine Urobilinogen Normal Ur Leukocyte Esterase Negative Urine RBC 0 SEEN Urine WBC 0-5 SEEN Ur Squamous Epith Cells 0 SEEN Calcium Oxalate Crystal 1+ Amorphous Sediment 1+ Urine Bacteria 0 SEEN Hyaline Casts 0-5 SEEN Urine Mucus 0 SEEN The cause of patient's leukocytosis is unknown. There is no evidence of rhabdomyolysis. Patient does have a lactate of 3.9. She is on no medications that would explain this. Because of the elevated lactate and white count blood cultures were obtained. Since she is afebrile not tachypneic, not tachycardic antibiotics were not initiated. Patient is unable to ambulate. Since patient is unable to ambulate with elevated white count lactate the hospitalist was paged for observation status and consult to PT/OT. - EKG Initial EKG Interpretation: Sinus Rhythm - Normal sinus rhythm with a short MS interval. Ventricular rate is 91. MS interval is 98 ms. QRS duration 76 ms. QT duration 388 ms. [place] is normal. The computer is reading and ossific changes which is motion artifact. - Medical Decision Making With history of headache, loss of consciousness, on antiplatelet meds and GCS of [address] of the head to rule out intracranial bleed i.e. subdural, epidural, traumatic subarachnoid hemorrhage or contusion. X-ray of the right lower extremity was obtained to evaluate for fracture of the hip and tibia/fibula. Blood work was obtained. Will obtain CPK to evaluate for rhabdomyolysis since she has been on the floor since 929. ED Disposition - Plan for ED Patient: Disposition: Acute Care [facility] Diagnosis: Leukocytosis, Lactic acidosis, Unable to ambulate, Closed head injury, Contusion of right lower leg, initial encounter, Contusion of right hip, initial encounter Referrals: Geovanna Hurtado MD [Primary Care Provider] -
--- NOTE | 2020-01-04 14:33 | RAD_ITS ---
STUDY: X-RAY - RIGHT TIBIA AND FIBULA REASON FOR EXAM: Female, 79 years old. PER , PT FELL AROUND 0930 RETURNING FROM ROOM TO BATHROOM. PT STATED and quot;I SAW A BOLT OF LIGHTNING and quot; TECHNIQUE: 4 view(s) of the tibia and fibula were obtained. COMPARISON: None. FINDINGS: Normal visualized tibia. Normal visualized fibula. Chondrocalcinosis of the lateral meniscus. Small bony densities are seen overlying the lateral knee joint. These may represent intra-articular loose bodies. The soft tissue structures are unremarkable. RAD/Tibia & Fibula 2 Views IMPRESSION: No acute abnormality is seen. Electronically Signed: Theo Weller, at 15:51 EDT , Service support ,
--- NOTE | 2020-01-04 14:33 | RAD_ITS ---
STUDY: X-RAY - PELVIS AND RIGHT HIP REASON FOR EXAM: Female, 79 years old. PER , PT FELL AROUND 0930 RETURNING FROM ROOM TO BATHROOM. PT STATED and quot;I SAW A BOLT OF LIGHTNING and quot; TECHNIQUE: 3 views of the pelvis and hip. COMPARISON: None. FINDINGS: Moderate amount of fecal material is seen in the colon. Status post laminectomy and fusion in the lower lumbar spine. Normal bilateral iliac wings, sacroiliac joints and visualized sacrum. Normal bilateral superior and inferior pubic rami. There are degenerative changes of the pubic symphysis with articular narrowing and sclerosis. Normal bilateral ischial tuberosities. There are osteoarthritic changes of the femoral head with marginal osteophyte formation. There is cortical sclerosis with sub-cortical cyst formation of the acetabulum. is severe articular joint space narrowing of the hip. RAD/HIP, UNI W/ Pelvis 2-3 Views IMPRESSION: Marked degree of joint space narrowing involving the right hip joint with marginal degenerative spurs of the femoral head. The patient is status post left hip replacement. Electronically Signed: Theo Weller, at 15:50 EDT , Service support ,
[2020-01-04] MEDS: Morphine 4 MG/ML Syringe IV (14:59)
[2020-01-04] MEDS: 0.9% Normal Saline 1,000 ML 150 ML IV (15:01)
[2020-01-04] MEDS: Ondansetron 4 MG/2 ML Vial IV (15:03)
[2020-01-04 15:11] LABS: Absolute Lymphocyte Count 1.25 X10^3/uL (0.83-4.51); Absolute Neutrophil Count 18.8 X10^3/uL (2.0-7.7); Basophil# 0.03 X10^3/uL; Basophil% 0.1 % (0-1); Eosinophil# 0.08 X10^3/uL; Eosinophils% 0.4 % (0-5); Lymphocyte # 1.25 X10^3/ul (4.0); Lymphocyte % 5.8 % (19-41); Mean Corp Hgb Conc 32.5 g/dL (32-36); Mean Corpuscular Hgb 31.7 pg (27.0-32.0); Mean Corpuscular Volume 97.6 fL (81-99); Mean Platelet Vol. 10.6 fl (6.2-12.0); Monocyte# 1.13 X10^3/uL; Monocyte% 5.3 % (0-10); NRBC Flagged by Analyzer 0 % (0-5); Neutrophil # 18.76 X10^3/uL (2.7-7.7); Neutrophil % 87.7 % (47-70); Platelet Count 288 K/mm3 (150-450); RBC Distribution Width CV 12.2 % (11.6-14.6); RBC Distribution Width SD 44.5 fl (35.1-43.9); White Blood Count 21.4 K/mm3 (4.4-11.0)
[2020-01-04 15:32] LABS: Anion Gap 9 (5-15); BUN 19 mg/dL (7-18); BUN/Creat Ratio 17.8 RATIO (10-20); Calcium,Total 9.5 mg/dL (8.5-10.1); Chloride 109 mmol/L (98-107); Creatinine, Serum 1.07 mg/dL (0.55-1.02); EST Glomerular Filtration Rate 53 mL/min (>60); Est Glom Filt Rate - Afr Amer 64 mL/min (>60); Estimated Creatinine Clearance 33.72 ml/min; Glucose 175 mg/dL (74-106); Potassium 3.6 mmol/L (3.5-5.1); Sodium Level 142 mmol/L (136-145)
[2020-01-04 15:35] LABS: CPK Total, Creatine Kinase 357 U/L (26-192)
[2020-01-04 16:25] LABS: Bacteria 0 SEEN /hpf (None Seen); Mucous, Urine 0 SEEN /hpf (<or=2+); Red Blood Cells-Urine 0 SEEN /hpf (0-5); Squamous Epithelial Cells - UA 0 SEEN /hpf (5-10)
[2020-01-04 16:33] LABS: Color, Urine Yellow (Yellow); Glucose, Dipstick Normal (Normal); Ketone-Dipstick 5 mg/dl (Negative); Leukocyte Esterase-Dipstick Negative /ul (Negative); Nitrite-Dipstick Negative (Negative); Occult Blood-Urine 10 /ul (Negative); Protein-Dipstick 30 mg/dl (Negative); Urine Bilirubin Dipstick Negative (Negative); Urine Clarity Clear (Clear); Urine Urobilinogen Normal (Normal)
[2020-01-04 16:49] LABS: Hyaline Cast 0-5 SEEN /lpf (0-5)
[2020-01-04 16:50] LABS: Amorphous Sediment 1+
[2020-01-04 16:51] LABS: Calcium Oxalate Crystals Ur 1+ /hpf (<or=2+)
[2020-01-04 16:52] LABS: White Blood Cells 0-5 SEEN /hpf (0-5)
--- NOTE | 2020-01-04 17:08 | RAD_ITS ---
STUDY: X-RAY CHEST REASON FOR EXAM: Female, 79 years old. TACHYPNEA AND ELEVATED WHITE COUNT TECHNIQUE: Single AP portable view of the chest. COMPARISON: 05/13/2016 FINDINGS: The lungs are clear and expanded. There is no demonstrated pleural abnormality. Normal size heart. Normal mediastinum and grace. Normal visualized pulmonary arteries. Normal visualized aortic arch and descending thoracic aorta. Normal visualized thoracic spine. Normal visualized ribs, clavicles, and shoulders. There is no demonstrated abnormality of the visualized soft tissue structures of the upper abdomen. RAD/Chest 1 View (Portable) IMPRESSION: Normal x-ray examination of the chest. Electronically Signed: Noe Dey MD at 17:27 EDT Tel , Service support ,
[2020-01-04 17:16] LABS: Lactic Acid 3.9 mmol/L (0.4-1.9)
--- NOTE | 2020-01-04 17:16 | ED.RN ---
lab called critical lactic acid of 3.9. dr gupta aware
--- NOTE | 2020-01-04 17:46 | ED.RN ---
attempted to ambulate pt. pt very unsteady. pt attempts to move feet, knees buckle. this rn and admission discharge rn attempting to get pt back in bed. pt a complete lift per staff. pt unable to assist herself
--- NOTE | 2020-01-04 18:17 | NURSING ---
MED SURG GAY LEUKOCYTOSIS, LACTIC ACIDOSIS, INABILITY TO WALK, CLOSED HEAD INJURY
--- NOTE | 2020-01-04 18:24 | ED.RN ---
dr gupta aware of lactate. no new orders received
--- NOTE | 2020-01-04 18:38 | PCM.HP.STD ---
Problem List (1) Leukocytosis Status: Acute (2) Lactic acidosis Status: Acute (3) Unable to ambulate Status: Acute (4) Closed head injury Status: Acute (5) Depression Status: Chronic (6) Short-term memory loss Status: Chronic (7) CVA (cerebral vascular accident) Status: Chronic (8) Osteoarthritis Status: Chronic (9) history of hemorrhagic stroke Status: Chronic Comment: 11/2009 (10) Hyperlipidemia Status: Chronic History of Present Illness Date of Admission: 01/04/20 Chief Complaint: Fall, weakness. The patient is a 79 year old F with past medical history as mentioned above presented to the emergency room because of fall and weakness. The patient is poor informant and she was not able to provide detailed history. Patient's was at the bedside and he provided most of the information. According to the , patient had a fall today morning around 9:30 AM, fell on the ground and hit her head, try to beat up but she was not able to stand and he stated that he lost her consciousness for short period of time. He states that she was confused but she does have intermittent confusion at baseline because of dementia. The patient reported that she was dizzy before she passed out. She complained of right hip and right leg pain. She denied blurred vision, slurred speech, focal motor weakness. She denied numbness or tingling. She denied chest pain or shortness of breath. She denied cough or sputum production. She has history of multiple strokes in the past x3 including 1 hemorrhagic stroke and she has been on Plavix and statins. She has no focal deficit. She has history of hyperlipidemia and she has been on statins. She has dementia and she has been on Namzaric with baseline intermittent confusion. In the emergency department, her vital signs were stable, was afebrile. Her routine blood work was remarkable for significant leukocytosis, BUN of 19, creatinine is 1.07. Blood glucose was 175. Lactic acid was 3.9. CPK was 357. Urinalysis revealed clear urine, negative for nitrite and leukocyte esterase, there was 0-5 WBCs and no bacteria seen. CT scan brain showed no acute infarct or hemorrhage. X-ray of the pelvis and right hip showed no acute fractures. X-ray of the right tibia and fibula showed no acute fractures. She is being admitted for physical debility, frequent falls, closed head injury, syncope, leukocytosis and lactic acidosis without obvious source of of infection. Past Medical History Past Medical History (Chronic Problems): Chronic Problems (Last Updated 01/04/20 @ 18:[address] 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 Hyperlipidemia (Chronic) Medical History: Medical History (Last Updated 01/04/20 @ 18:[address] Hilda Chisholm MD) Arthritis (Chronic) M19.90 Depression (Chronic) F32.9 Short-term memory loss (Chronic) R41.3 CVA (cerebral vascular accident) (Chronic) I63.9 DDD (degenerative disc disease), lumbar (Chronic) M51.36 Allergies No Known Allergies Allergy (Verified 01/04/20 14:28) Home Medications: Ambulatory Orders Medication Instructions Recorded Atorvastatin Calcium [Lipitor] 40 mg PO QHS 01/04/20 Clopidogrel Bisulfate [Plavix] 75 mg PO DAILY 01/04/20 Ergocalciferol [Vitamin D] 50,000 unit PO QMONTH 01/04/20 Furosemide [Lasix] 20 mg PO DAILY 01/04/20 Memantine HCl/Donepezil HCl 1 ea PO DAILY 01/04/20 [Namzaric 28 mg-10 mg Capsule] Multivit-Min/Iron/Folic/Lutein 1 ea PO DAILY 01/04/20 [Centrum Silver Women Tablet] Paroxetine HCl [Paxil] 40 mg PO DAILY 01/04/20 Prevagen 20 mg PO DAILY 01/04/20 Surgical History: Surgical History (Last Updated 12/07/19 @ 13:54 by Elba Mark) History of back surgery Z98.890 2008 History of total hip replacement Z96.649 Carpal tunnel syndrome on both sides G56.03 Cataract H26.9 Cholecystectomy planned History of left knee replacement Z96.652 Surgical History: cholecystectomy, total hip arthroplasty, total knee arthroplasty, - - Back surgery. Psychiatric History: Depression FAMILY SUPPORT COORDINATOR History: No pertinent FAMILY SUPPORT COORDINATOR history Lives: Spouse/ Significant Other Smoking Status: Former smoker Alcohol: None Drugs: None - *Family History Maternal Family History: Family History (Last Reviewed 01/04/20 @ 18:[address] Hilda Chisholm MD) Father Heart disease Hypertension CVA (cerebral vascular accident) Mother Heart disease Hypertension Review of Systems Constitutional: Reports: Weakness, Fatigue. Denies: Anorexia, Chills, Fever Eyes: Denies: Blurred vision, Double vision, Drainage, Redness HEENT: Denies: Difficulty Hearing, Ear Pain, Eye Pain, Nasal Congestion, Sore Throat Cardiovascular: Reports: Light Headedness. Denies: Chest Pain, Chest Pressure, Edema, Heaviness, Palpitations Respiratory: Denies: Cough, Pleuritic Pain, Shortness of Breath, Sputum production, Wheezing Gastrointestinal: Denies: Abdominal Pain, Constipation, Diarrhea, Nausea, Vomiting Genitourinary: Denies: Dysuria, Frequency, Hematuria Musculoskeletal: Reports: Joint Pain. Denies: Arm Pain, Back Pain Skin: Denies: Dryness, Rash Neurological: Reports: Confusion. Denies: Balance problems, Double vision, Change in Speech, Slurred speech, Difficulty swallowing, Headaches, Incoordination Psychiatric: Reports: Depression. Denies: Anxiety Endocrine: Denies: Change in Body Habitus, Polydipsia, Polyuria VTE Information - Inpt Only VTE Present on Admission: No VTE Mechan Device Prophylaxis: None VTE Pharm Prophylaxis ordered?: Yes Patient Problems: Active and Suspected Problems (Last Updated 01/04/20 @ 18:[address] Hilda Chisholm MD) Contusion of right lower leg, initial encounter (Acute) Contusion of right hip, initial encounter (Acute) Leukocytosis (Acute) Lactic acidosis (Acute) Unable to ambulate (Acute) Closed head injury (Acute) - Physical Exam Vitals/I&O's: Vital Signs Temp Pulse Resp BP Pulse Ox 97.6 F L 90 18 130/64 H 95 01/04/20 18:19 01/04/20 18:19 01/04/20 18:19 01/04/20 18:19 01/04/20 18:19 Oxygen Delivery Method Room Air Weight: 153 lb 3.54 oz Body Mass Index (BMI) 28.0 Finger Stick Blood Glucose 92 General: Alert, Cooperative, No apparent distress, - - Oriented to self and place, disoriented to time. HEENT: PERRLA, EOMI, Normocephalic, - - Traumatic, left forehead bruises. Oral: Moist Mucosa, No Gingival or Mucosal Lesions/ Ulcerations Neck: Supple, No JVD, Negative Carotid Bruits, Trachea Midline, Thyroid Normal Size and Texture Lungs: Clear to auscultation, Normal air movement, No rhonchi, No wheeze, No rales, Diminished Cardiovascular: Regular rate, Regular Rhythm, Normal S1, Normal S2, PMI Normal Abdomen: Bowel Sounds Present, Soft, Non Tender, Non-Distended, No Hepato-splenomegaly Extremities: No clubbing, No cyanosis, No edema, - Skin: No rashes, No breakdown Musculoskeletal: - - Right hip bruise, left knee bruise. Lymphatic: No Cervical, Supraclavicular, or Inguinal Adenopathy Neurological: Cranial nerves II-XII grossly intact, Motor Exam 5/5 strength throughout Psych/Mental Status: Normal Affect, Appropriate Laboratory Results 01/04/20 14:50: WBC 21.4 H, RBC 4.10 L, Hgb 13.0, Hct 40.0, MCV 97.6, MCH 31.7, MCHC 32.5, RDW Std Deviation 44.5 H, RDW Coeff of Marlena 12.2, Plt Count 288, MPV 10.6, Immature Gran % (Auto) 0.700, Neut % (Auto) 87.7 H, Lymph % (Auto) 5.8 L, [place] % (Auto) 5.3, Eos % (Auto) 0.4, Baso % (Auto) 0.1, Absolute Neuts (auto) 18.8 H, Absolute Lymphs (auto) 1.25, Nucleated RBC % 0 01/04/20 14:50: Sodium 142, Potassium 3.6, Chloride 109 H, Carbon Dioxide 24.0, Anion Gap 9, BUN 19 H, Creatinine 1.07 H, Estim Creat Clear Calc 33.72, Est GFR (MDRD) Af Amer 64, Est GFR (MDRD) Non-Af 53 L, BUN/Creatinine Ratio 17.8, Glucose 175 H, Calcium 9.5 01/04/20 14:50: Total Creatine Kinase 357 H 01/04/20 15:57: Lactic Acid 3.9 H* 01/04/20 16:15: Urine Color Yellow, Urine Clarity Clear, Urine pH 5.0, Ur Specific [place] 1.030, Urine Protein 30 H, Urine Glucose (UA) Normal, Urine Ketones 5 H, Urine Occult Blood 10 H, Urine Nitrite Negative, Urine Bilirubin Negative, Urine Urobilinogen Normal, Ur Leukocyte Esterase Negative, Urine RBC 0 SEEN, Urine WBC 0-5 SEEN, Ur Squamous Epith Cells 0 SEEN, Calcium Oxalate Crystal 1+, Amorphous Sediment 1+, Urine Bacteria 0 SEEN, Hyaline Casts 0-5 SEEN, Urine Mucus 0 SEEN Clinical Impression(s) from Imaging Studies Brain CT 01/04/20 14:31 IMPRESSION: Stable examination. Electronically Signed: Theo Weller, at 15:49 EDT , Service support , Hip/Pelvis X-Ray 01/04/20 14:33 IMPRESSION: Marked degree of joint space narrowing involving the right hip joint with marginal degenerative spurs of the femoral head. The patient is status post left hip replacement. Electronically Signed: Theo Weller, at 15:50 EDT , Service support , Tibia/Fibula X-Ray 01/04/20 14:33 IMPRESSION: No acute abnormality is seen. Electronically Signed: Theo Weller, at 15:51 EDT , Service support , Chest X-Ray 01/04/20 17:08 IMPRESSION: Normal x-ray examination of the chest. Electronically Signed: Noe Dey MD at 17:27 EDT Tel , Service support , Current Medications Sodium Chloride () 1,000 mls @ 150 mls/hr IV .Q6H40M ABE Last Admin: 01/04/20 15:01 Dose: 150 mls/hr Documented by: Assessment/Plan All Active Problems (Last Updated 01/04/20 @ 18:[address] Hilda Chisholm MD) Contusion of right lower leg, initial encounter (Acute) Contusion of right hip, initial encounter (Acute) Leukocytosis (Acute) Lactic acidosis (Acute) Unable to ambulate (Acute) Closed head injury (Acute) This is a 79 years old female patient presented to the emergency room because of fall, loss of consciousness, found to have significantly leukocytosis with lactic acidosis without obvious source of infection, found to have closed head injury and she is being admitted for evaluation and treatment. #1 fall/physical debility/closed head injury/closed right hip injury: X-ray of the pelvis, right hip and right tibia and fibula showed no acute fractures. CT scan brain showed no acute infarct or hemorrhage. Her vital signs are stable. Routine blood work reviewed as above. Plan: Admit to PCU, cardiac monitoring, NIH stroke scale, gentle IV fluids for hydration, check LFT, pro time and INR, MRI brain, repeat CBC and BMP in the morning, PT OT evaluation and treatment, case management consult for discharge planning. #2 leukocytosis/lactic acidosis: Unclear etiology, no obvious source of infection. Chest x-ray and urinalysis were unremarkable. CPK is slightly elevated, not very high to suggest rhabdomyolysis. Patient has been afebrile. Plan: Blood culture, IV fluids, repeat lactic acid in 3 hours, repeat CBC and BMP in the morning. At this time, no indication to start IV antibiotics. #3 reported loss of consciousness/syncope: EKG revealed normal sinus rhythm, short MI interval, no acute segment changes. CT scan brain showed no acute findings. Patient history of multiple strokes in the past. Her vital signs been stable. Plan: NIH stroke scale, continue Plavix and statins, MRI brain. #4 history of multiple strokes in the past: Plan as above, continue Plavix and statins. #5 hyperlipidemia: Continue statins. #6 depression: Stable, continue Paxil. #7 dementia: With baseline intermittent confusion. Continue Namzaric. #8 CODE STATUS: Discussed with the patient herself and her . She is full code, agreed to CPR, ETT and mechanical ventilation. #9 DVT prophylaxis: Subcu Lovenox. This note was generated with Lollipuff dictation software. It may contain incorrect words, spelling, and punctuation that were not noted in checking the note before signing. Inpatient E&M: 51553 Init Hosp L3
[2020-01-04 20:15] LABS: Prothrombin Time (Protime)PT. 12.6 SECONDS (11.7-14.9)
[2020-01-04 20:26] LABS: Reflex Lactate? Y
[2020-01-04] MEDS: Atorvastatin Calcium 80 MG Tablet PO (20:37)
[2020-01-04] MEDS: 0.9% Normal Saline 1,000 ML 100 ML IV (20:37)
[2020-01-04 20:41] LABS: AST(SGOT) 34 U/L (15-37); Alanine Aminotransfer ALT/SGPT 19 U/L (13-56); Albumin, Serum 3.9 g/dL (3.2-5.0); Alkaline Phosphatase 167 U/L (45-117); Globulin 3.6 g/dL (2.2-4.2); Protein, Total 7.5 g/dL (6.4-8.2)
[2020-01-04] MEDS: 0.9% Saline Lock 10 ML Syringe IV (20:41)
[2020-01-04 22:02] LABS: Lactic Acid 3.5 mmol/L (0.4-1.9)
[2020-01-05] VITALS (13 sets, daily range): BP systolic 93–138; BP diastolic 47–87; PULSE 66–171; RESP 16–18; TEMP 36.6–37.7; O2SAT 93–100
--- NOTE | 2020-01-05 05:05 | NURSING ---
Addendum entered by Rita Najera 01/05/20 05:44: ATTEMPTED TO HAVE PATIENT BEAR DOWN AND BLOW THREW A SYRINGE, PATIENT REMAINED IN SVT. Original Note: PATIENT WENT INTO SVT ON MONITOR BP STABLE, NO CP OR SOB. DR LOONEY CALLED TO FLOOR, PATIENT DID CONVERT TO NSR, SEE MD NOTES.
--- NOTE | 2020-01-05 05:11 | EKG12_ITS ---
Test Reason : Blood Pressure : / mmHG Vent. Rate : 097 BPM Atrial Rate : 097 BPM P-R Int : 118 ms QRS Dur : 080 ms QT Int : 326 ms P-R-T Axes : 056 041 240 degrees QTc Int : 414 ms Normal sinus rhythm Nonspecific T wave abnormality Abnormal ECG When compared with ECG of 05-JAN-2020 05:20, MANUAL COMPARISON REQUIRED, DATA IS UNCONFIRMED Confirmed by ANNA STAFFORD, RIGO ([id number]), editor in chief YE CABRERA ([id number]) on 01/05/2020 11:40:06 AM Referred By: GAY Confirmed By:JEFFRY CASTILLO MD
--- NOTE | 2020-01-05 05:20 | EKG12_ITS ---
Test Reason : SVT Blood Pressure : / mmHG Vent. Rate : 168 BPM Atrial Rate : 168 BPM P-R Int : 000 ms QRS Dur : 076 ms QT Int : 288 ms P-R-T Axes : 000 060 240 degrees QTc Int : [address] & T wave abnormality (nonspecific) Abnormal ECG Confirmed by VALDEMAR STAFFORD, HAMILTON ([id number]), news video editor YE CABRERA ([id number]) on 01/06/2020 10:17:52 AM Referred By: GAY Confirmed By:HAMILTON ALDRICH MD
[2020-01-05] MEDS: 0.9% Normal Saline 1,000 ML 100 ML IV (05:33)
--- NOTE | 2020-01-05 05:40 | PCM.HOSP.N ---
Hospitalist Note Called to see the patient due to sustained SVT. Patient heart rate was in the 160s 170s. EKG confirmed SVT. Nursing stated they attempted carotid massage and patient bearing down with no relief. I went to present evaluate the patient and asked for them to get adenosine. Whether getting the adenosine, I did a right carotid massage. Patient converted to normal sinus rhythm. Patient was asymptomatic during the whole affair. We will start the patient on metoprolol tartrate 50 mg twice daily.
--- NOTE | 2020-01-05 05:43 | NURSING ---
This RN did not do a carotid massage on patient.
[2020-01-05] MEDS: Metoprolol Tartrate 50 MG Tablet PO ×2 (05:51→21:57)
[2020-01-05 06:08] LABS: Absolute Lymphocyte Count 1.78 X10^3/uL (0.83-4.51); Absolute Neutrophil Count 10.2 X10^3/uL (2.0-7.7); Basophil# 0.02 X10^3/uL; Basophil% 0.1 % (0-1); Hematocrit 31.4 % (37-47); Lymphocyte # 1.78 X10^3/ul (4.0); Lymphocyte % 13.1 % (19-41); Mean Corp Hgb Conc 31.8 g/dL (32-36); Mean Corpuscular Hgb 31.7 pg (27.0-32.0); Mean Corpuscular Volume 99.7 fL (81-99); Mean Platelet Vol. 10.8 fl (6.2-12.0); Monocyte# 1.54 X10^3/uL; Monocyte% 11.4 % (0-10); NRBC Flagged by Analyzer 0 % (0-5); Neutrophil # 10.15 X10^3/uL (2.7-7.7); POSITIVE DIFFERENTIAL YES; Platelet Count 236 K/mm3 (150-450); RBC Distribution Width CV 12.7 % (11.6-14.6); RBC Distribution Width SD 45.4 fl (35.1-43.9); Red Blood Count 3.15 M/mm3 (4.2-5.4); White Blood Count 13.5 K/mm3 (4.4-11.0)
[2020-01-05 06:16] LABS: Differential Indicated SCAN CRITERIA MET
[2020-01-05 06:35] LABS: Differential Comment SCANNED
[2020-01-05 06:38] LABS: Anion Gap 7 (5-15); BUN 22 mg/dL (7-18); BUN/Creat Ratio 23.6 RATIO (10-20); CPK Total, Creatine Kinase 218 U/L (26-192); Calcium,Total 8.4 mg/dL (8.5-10.1); Chloride 109 mmol/L (98-107); Creatinine, Serum 0.93 mg/dL (0.55-1.02); EST Glomerular Filtration Rate 61 mL/min (>60); Est Glom Filt Rate - Afr Amer 74 mL/min (>60); Estimated Creatinine Clearance 38.79 ml/min; Glucose 136 mg/dL (74-106); Potassium 3.9 mmol/L (3.5-5.1); Sodium Level 139 mmol/L (136-145)
--- NOTE | 2020-01-05 08:30 | MRI_ITS ---
STUDY: MRI BRAIN WITHOUT CONTRAST REASON FOR EXAM: Female, 79 years old. syncope, hx multiple strokes, pt fell and hit head 01/04/20 TECHNIQUE: Standardized multiplanar fat and water weighted pulse sequences were obtained. COMPARISON: 06/21/2014 FINDINGS: There is moderate cerebral atrophy with widening of the extra-axial spaces and ventricular dilatation. There are multiple white matter hyperintensities, distributed throughout the deep white matter tracts of the cerebral hemispheres, consistent with moderate chronic white matter ischemic changes. No change in appearance in areas of encephalomalacia and gliosis within the right temporal lobe, left frontal lobe, left occipital lobe with some hemosiderin staining likely consistent with prior hemorrhagic infarct. There is no evidence for recent intracranial ischemia or other cause of cytotoxic edema on diffusion weighted imaging (DWI). Normal bilateral basal ganglia. Normal thalami. There is no extra-axial fluid accumulation. Normal flow voids within the major intracranial circulation suggesting patency by spin echo criteria. Normal sella turcica, pituitary gland, infundibular stalk, optic chiasm and hypothalamus. Normal tectal plate and pineal gland. Normal midbrain, garret and medulla. Normal cerebellum. Normal basal cisterns. Normal bilateral temporal bones. Normal bilateral internal auditory canals. There are bilateral ocular lens implants with otherwise normal intraorbital contents. Normal visualized paranasal sinuses. Normal calvarium and skull base. Normal visualized soft tissue structures. Normal visualized upper cervical spine. MRI/Brain without Contrast IMPRESSION: Involutional changes of the brain, as described above. Electronically Signed: Noe Dey MD at 9:31 EDT Tel , Service support ,
--- NOTE | 2020-01-05 08:58 | ECHOD_ITS ---
Reason For Study: TIA/ CVA Procedure This was a 2D Doppler, Color Flow transthoracic echocardiogram. Exam performed portable in patient room. Left Ventricle Normal LV size. The estimated ejection fraction is 60 %. No evidence for diastolic dysfunction. No regional wall motion abnormalities noted. Right Ventricle Normal RV size. Normal systolic function. Atria Normal left atrium. Normal right atrium. No doppler evidence for ASD. Mitral Valve There is no mitral valve stenosis. No mitral valve insufficiency. Tricuspid Valve There is no tricuspid stenosis. Moderate (2+) tricuspid valve insufficiency. Pulmonary artery systolic pressure is 40 mmHg. Aortic Valve Trisinus/trileaflet aortic valve. There is no aortic stenosis. No aortic valve insufficiency. Pulmonic Valve There is no pulmonic valvular stenosis. No pulmonic valve insufficiency. Great Vessels Normal aortic root. Pericardium/Pleural No pericardial effusion. MMode/2D Measurements & Calculations LVIDd: 3.9 cm IVSd: 0.76 cm Ao root diam: 3.4 cm LVIDs: 2.6 cm LVPWd: 0.88 cm RVDd: 2.7 cm FS: 33.3 % LAV(MOD-bp): 28.4 ml LA A4 area: 12.9 cm2 LA dimension(2D): 3.3 cm LAV(MOD-bp) Indexed: 16.9 ml/m2 LAV(MOD-sp2): 30.3 ml LAV(MOD-sp4): 27.0 ml RA A4 area: 11.9 cm2 Time Measurements MV dec time: 0.27 sec Doppler Measurements & Calculations MV E max miah: 84.2 cm/sec Ao V2 max: 165.9 cm/sec LV V1 max: 120.1 cm/sec MV A max miah: 122.4 cm/sec Ao max P.7 mmHg LV V1 max P.8 mmHg MV E/A: 0.69 PA V2 max: 82.6 cm/sec TR max miah: 293.9 cm/sec TR max P.6 mmHg Interpretation Summary The estimated ejection fraction is 60 %. No evidence for diastolic dysfunction. Moderate (2+) tricuspid valve insufficiency. Ordering Physician: Asia Sadler Referring Physician: ELISEO GALVEZ Performed By: Jennifer Rivas, WILLIE, RVT
--- NOTE | 2020-01-05 10:18 | NURSING ---
[facility] late d/t pt off floor for MRI.
[2020-01-05] MEDS: Enoxaparin 30 MG/0.3 ML Syringe SC (10:20)
[2020-01-05] MEDS: 0.9% Saline Lock 10 ML Syringe IV (10:20)
[2020-01-05] MEDS: Paroxetine 20 MG Tablet 40 MG PO (10:22)
[2020-01-05] MEDS: Clopidogrel Bisulfate 75 MG Tablet PO (10:22)
--- NOTE | 2020-01-05 11:18 | CASEMGMT ---
This RN CM to room to complete CM assessment and ECHO is at bedside at this time. Will attempt again later. SStjuan manuel RN CM
--- NOTE | 2020-01-05 12:51 | CASEMGMT ---
Assessment- SW spoke with patient's as patient was sleeping. He was agreeable to answering SW's questions. SW also confirmed addresses and phone number. Living situation- Patient lives with her in a 1 story home with a basement and attic. There are no entry steps if entering from the back and there are 2 steps if entering from the front. PCP: Dr Hurtado Specialists: None Pharmacy: [facility] DME: shower chair, cane, raised toilet seat, and grab bars ADL's/IADL's: Per patient's patient does not use any assistive devices to walk normally. She bathes herself. She toilets and dresses herself. She helps with housekeeping, but does not cook. Patient's manages the bills and patient's medications. She does not drive. Past SNF/rehab: She has never been to a SNF for rehab Past HH: Yes. It was about 10 years ago. LW: Yes and on file at [facility] POA: Yes and on file at [facility]. Patient's [facility] is her Healthcare POA Plan: Patient's did not see any issues with patient returning home. He said he would just like to know what is wrong with her. SW told him GLORY and RN CM will follow for any d/c needs. Alicia WILHELM MSW
--- NOTE | 2020-01-05 13:53 | PN_ITS ---
<[employer] - Last Filed: 01/05/20 14:09> Patient Problems: Active and Suspected Problems (Last Updated 01/04/20 @ 18:[address] Hilda rutherford MD) Contusion of right lower leg, initial encounter (Acute) Contusion of right hip, initial encounter (Acute) Leukocytosis (Acute) Lactic acidosis (Acute) Unable to ambulate (Acute) Closed head injury (Acute) Subjective: Patient seen and examined. No further syncope, presyncope. Patient states she thinks she fell and then passed out. at bedside and did not witness the event. Patient denies neurologic symptoms or focal deficits. Denies recurrent falls. Denies fever, chills. - Physical Exam Vitals/I&O's: Vital Signs Temp Pulse Resp BP Pulse Ox 97.9 F 69 16 104/50 L 100 01/05/20 10:15 01/05/20 10:15 01/05/20 10:15 01/05/20 10:15 01/05/20 10:20 Oxygen Flow Rate (L/min) 2 Oxygen Delivery Method Room Air Weight: 148 lb 12.992 oz Body Mass Index (BMI) 27.2 Finger Stick Blood Glucose 92 Intake and Output for Last 24 Hours 01/03/20 01/04/20 01/05/20 23:59 23:59 23:59 Intake Total 672.5 / 772.5 1680.00 / 1680.00 Output Total 450 / 450 Balance 672.5 / 622.5 1230.00 / 1230.00 General: Alert, Oriented x3, Cooperative HEENT: Atraumatic, PERRLA, EOMI, Normocephalic Neck: Supple, No JVD, Negative Carotid Bruits Lungs: Clear to auscultation, Normal air movement Cardiovascular: Regular rate, Regular Rhythm, Normal S1, Normal S2 Abdomen: Bowel Sounds Present, Soft, Non Tender, Non-Distended Extremities: No clubbing, No cyanosis, No edema, Capillary Refill Less than 3 Seconds Skin: No rashes, No breakdown Musculoskeletal: No Tenderness to Palpation of Joints or Extremities Neurological: Cranial nerves II-XII grossly intact, Neuro grossly intact Psych/Mental Status: Normal Affect, Appropriate Laboratory Results 01/04/20 14:50: WBC 21.4 H, RBC 4.10 L, Hgb 13.0, Hct 40.0, MCV 97.6, MCH 31.7, MCHC 32.5, RDW Std Deviation 44.5 H, RDW Coeff of Marlena 12.2, Plt Count 288, MPV 10.6, Immature Gran % (Auto) 0.700, Neut % (Auto) 87.7 H, Lymph % (Auto) 5.8 L, [place] % (Auto) 5.3, Eos % (Auto) 0.4, Baso % (Auto) 0.1, Absolute Neuts (auto) 18.8 H, Absolute Lymphs (auto) 1.25, Nucleated RBC % 0 01/04/20 14:50: Sodium 142, Potassium 3.6, Chloride 109 H, Carbon Dioxide 24.0, Anion Gap 9, BUN 19 H, Creatinine 1.07 H, Estim Creat Clear Calc 33.72, Est GFR (MDRD) Af Amer 64, Est GFR (MDRD) Non-Af 53 L, BUN/Creatinine Ratio 17.8, Glucose 175 H, Calcium 9.5 01/04/20 14:50: Total Creatine Kinase 357 H 01/04/20 14:50: PT 12.6, INR 1.0 01/04/20 14:50: Total Bilirubin 1.00, Direct Bilirubin 0.20, AST 34, ALT 19, Alkaline Phosphatase 167 H, Total Protein 7.5, Albumin 3.9, Globulin 3.6 01/04/20 15:57: Lactic Acid 3.9 H* 01/04/20 16:15: Urine Color Yellow, Urine Clarity Clear, Urine pH 5.0, Ur Specific Marion 1.030, Urine Protein 30 H, Urine Glucose (UA) Normal, Urine Ketones 5 H, Urine Occult Blood 10 H, Urine Nitrite Negative, Urine Bilirubin Negative, Urine Urobilinogen Normal, Ur Leukocyte Esterase Negative, Urine RBC 0 SEEN, Urine WBC 0-5 SEEN, Ur Squamous Epith Cells 0 SEEN, Calcium Oxalate Crystal 1+, Amorphous Sediment 1+, Urine Bacteria 0 SEEN, Hyaline Casts 0-5 SEEN, Urine Mucus 0 SEEN 01/04/20 21:03: Lactic Acid 3.5 H* 01/05/20 05:48: Sodium 139, Potassium 3.9, Chloride 109 H, Carbon Dioxide 23.0, Anion Gap 7, BUN 22 H, Creatinine 0.93, Estim Creat Clear Calc 38.79, Est GFR (MDRD) Af Amer 74, Est GFR (MDRD) Non-Af 61, BUN/Creatinine Ratio 23.6 H, Glucose 136 H, Calcium 8.4 L, Total Creatine Kinase 218 H 01/05/20 05:48: WBC 13.5 H, RBC 3.15 L, Hgb 10.0 L, Hct 31.4 L, MCV 99.7 H, MCH 31.7, MCHC 31.8 L, RDW Std Deviation 45.4 H, RDW Coeff of Marlena 12.7, Plt Count 236, MPV 10.8, Immature Gran % (Auto) 0.400, Neut % (Auto) 75.0 H, Lymph % (Auto) 13.1 L, [place] % (Auto) 11.4 H, Eos % (Auto) 0.0, Baso % (Auto) 0.1, Absolute Neuts (auto) 10.2 H, Absolute Lymphs (auto) 1.78, Nucleated RBC % 0, Differential Comment SCANNED, Diff Path Review May foll Current Medications Acetaminophen (Acetaminophen 325 Mg Tablet) 650 mg PO Q6H PRN PRN PRN Reason: Pain Score 1-10/Temp > 100.7 F Atorvastatin Calcium (Atorvastatin Calcium 80 Mg Tablet) 80 mg PO DAILY@2200 [facility] [place] Last Admin: 01/04/20 20:37 Dose: 80 mg Documented by: Clopidogrel Bisulfate (Clopidogrel Bisulfate 75 Mg Tablet) 75 mg PO DAILY [facility] [place] Last Admin: 01/05/20 10:22 Dose: 75 mg Documented by: Enoxaparin Sodium (Enoxaparin 30 Mg/0.3 Ml Syringe) 30 mg SC DAILY [facility] [place] Last Admin: 01/05/20 10:20 Dose: 30 mg Documented by: Sodium Chloride () 1,000 mls @ 100 mls/hr IV .Q10H [facility] [place] Stop: 01/05/20 15:23 Last Infusion: 01/05/20 10:00 Dose: 100 mls/hr Documented by: Sodium Chloride () 250 mls @ 15 mls/hr IV .[id number] PRN PRN Reason: Saline Flush Sodium Chloride () 250 mls @ 15 mls/hr IV .[id number] PRN PRN Reason: Additional IVPB Infusion Metoprolol Tartrate (Metoprolol Tartrate 50 Mg Tablet) 50 mg PO BID [facility] [place] Last Admin: 01/05/20 05:51 Dose: 50 mg Documented by: Ondansetron HCl (Ondansetron 4 Mg/2 Ml Vial) 4 mg IV Q8H PRN PRN PRN Reason: NAUSEA/VOMITING Paroxetine HCl (Paroxetine 20 Mg Tablet) 40 mg PO DAILY [facility] [place] Last Admin: 01/05/20 10:22 Dose: 40 mg Documented by: Potassium Chloride (Potassium Chloride 20 Meq Tablet) 20 meq PO DAILYCM [facility] [place] Last Admin: 01/05/20 10:22 Dose: 20 meq Documented by: Senna/Docusate Sodium (Senna/Docusate Sodium 1 Tablet) 2 tablet PO BID PRN PRN PRN Reason: Constipation Sodium Chloride (0.9% Saline Lock 10 Ml Syringe) 10 - 40 ml IV UD PRN PRN Reason: SALINE FLUSH Last Admin: 01/05/20 10:20 Dose: 10 ml Documented by: Sodium Chloride (0.9% Saline Lock 10 Ml Syringe) 10 - 40 ml IV UD PRN PRN Reason: SALINE FLUSH Medical Necessity - Tobacco Use Smoking Status: Former smoker Tobacco Use: Cigarettes Assessment/Plan All Active Problems (Last Updated 01/04/20 @ 18:[address] Hilda Chisholm MD) Contusion of right lower leg, initial encounter (Acute) Contusion of right hip, initial encounter (Acute) Leukocytosis (Acute) Lactic acidosis (Acute) Unable to ambulate (Acute) Closed head injury (Acute) 1. Syncope with mechanical fall-unclear which occurred first. Patient thinks she tripped and fell resulting in her to pass out. Imaging without acute fracture. CT scan showed no acute infarct or hemorrhage. MRI of brain negative. Echocardiogram demonstrates an EF of 60%, moderate tricuspid valve insufficiency. EKG on admission without ischemia. 2. Leukocytosis/lactic acidosis-unclear etiology, possibly reactive. Trending down. No obvious source of infection. Chest x-ray unremarkable. Urinalysis unremarkable. Blood cultures pending. 3. SVT-patient had episode of sustained SVT early this morning. Resolved following carotid massage. Initiated on metoprolol 50 mg twice daily. Will check TSH, mag. Check troponin. Monitor telemetry. 4. History of multiple CVA-continue Plavix, statin. 5. Hyperlipidemia- continue statin. 6. Depression-on paroxetine. 7. Dementia- on Prevagen. DVT prophylaxis-Lovenox subcu This patient was seen by EMELY Rae under the supervision of Dr. Olivera. <ShalomFlorenciaRamya - Last Filed: 01/05/20 17:17> Subjective: Pt states that she is feeling well. States that her back pain was bad last pm when she had the SVT. Notes reviewed and no further episodes. Unclear on the sequencing of events. states that he is not sure what her HR was at home when she had the fall. No s/o seizure activity. - Physical Exam Vitals/I&O's: Vital Signs Temp Pulse Resp BP Pulse Ox 97.9 F 73 16 104/50 L 100 01/05/20 10:01/05/20 14:43 01/05/20 10:15 01/05/20 10:15 01/05/20 10:20 Oxygen Flow Rate (L/min) 2 Oxygen Delivery Method Room Air Weight: 67.5 kg Body Mass Index (BMI) 27.2 Finger Stick Blood Glucose 92 Intake and Output for Last 24 Hours 01/03/20 01/04/20 01/05/20 23:59 23:59 23:59 Intake Total 672.5 / 772.5 1680.00 / 1680.00 Output Total 450 / 450 Balance 672.5 / 622.5 1230.00 / 1230.00 General: Alert, Oriented x3, Cooperative, No apparent distress, Well developed, Well nourished, - - older WF sitting up in the chair, at bedside HEENT: Atraumatic, PERRLA, EOMI, Normocephalic, EAC Clear Oral: Moist Mucosa Neck: Supple Lungs: Clear to auscultation, Normal air movement, No rhonchi, No wheeze Cardiovascular: Regular rate, Regular Rhythm, Normal S1, Normal S2, No murmurs, No Ectopic Activity, No rub noted, No Gallop Abdomen: Bowel Sounds Present, Soft, Non Tender, Non-Distended, No hernias noted Extremities: No clubbing, No cyanosis, No edema, Capillary Refill Less than 3 Seconds, Peripheral Pulses Normal Skin: No rashes, No breakdown, - - large ecchymotic area R lower lumbar area and buttock than extends around to the lateral hip area Musculoskeletal: Tenderness - over R buttock proximal and R LS spine Laboratory Results 01/04/20 14:50: PT 12.6, INR 1.0 01/04/20 14:50: Total Bilirubin 1.00, Direct Bilirubin 0.20, AST 34, ALT 19, Alkaline Phosphatase 167 H, Total Protein 7.5, Albumin 3.9, Globulin 3.6 01/04/20 15:57: Lactic Acid 3.9 H* 01/04/20 16:15: Urine Color Yellow, Urine Clarity Clear, Urine pH 5.0, Ur Specific [place] 1.030, Urine Protein 30 H, Urine Glucose (UA) Normal, Urine Ketones 5 H, Urine Occult Blood 10 H, Urine Nitrite Negative, Urine Bilirubin Negative, Urine Urobilinogen Normal, Ur Leukocyte Esterase Negative, Urine RBC 0 SEEN, Urine WBC 0-5 SEEN, Ur Squamous Epith Cells 0 SEEN, Calcium Oxalate Crystal 1+, Amorphous Sediment 1+, Urine Bacteria 0 SEEN, Hyaline Casts 0-5 SEEN, Urine Mucus 0 SEEN 01/04/20 21:03: Lactic Acid 3.5 H* 01/05/20 05:48: Sodium 139, Potassium 3.9, Chloride 109 H, Carbon Dioxide 23.0, Anion Gap 7, BUN 22 H, Creatinine 0.93, Estim Creat Clear Calc 38.79, Est GFR (MDRD) Af Amer 74, Est GFR (MDRD) Non-Af 61, BUN/Creatinine Ratio 23.6 H, Glucose 136 H, Calcium 8.4 L, Total Creatine Kinase 218 H 01/05/20 05:48: WBC 13.5 H, RBC 3.15 L, Hgb 10.0 L, Hct 31.4 L, MCV 99.7 H, MCH 31.7, MCHC 31.8 L, RDW Std Deviation 45.4 H, RDW Coeff of Marlena 12.7, Plt Count 236, MPV 10.8, Immature Gran % (Auto) 0.400, Neut % (Auto) 75.0 H, Lymph % (Auto) 13.1 L, [place] % (Auto) 11.4 H, Eos % (Auto) 0.0, Baso % (Auto) 0.1, Absolute Neuts (auto) 10.2 H, Absolute Lymphs (auto) 1.78, Nucleated RBC % 0, Differential Comment SCANNED, Diff Path Review Reviewed 01/05/20 05:48: Magnesium 2.1, Troponin I < 0.015, TSH 0.44 Current Medications Acetaminophen (Acetaminophen 325 Mg Tablet) 650 mg PO Q6H PRN PRN PRN Reason: Pain Score 1-10/Temp > 100.7 F Atorvastatin Calcium (Atorvastatin Calcium 80 Mg Tablet) 80 mg PO DAILY@2200 [facility] [place] Last Admin: 01/04/20 20:37 Dose: 80 mg Documented by: Clopidogrel Bisulfate (Clopidogrel Bisulfate 75 Mg Tablet) 75 mg PO DAILY [facility] [place] Last Admin: 01/05/20 10:22 Dose: 75 mg Documented by: Enoxaparin Sodium (Enoxaparin 40 Mg/0.4 Ml Syringe) 40 mg SC DAILY [facility] [place] Sodium Chloride () 250 mls @ 15 mls/hr IV .[id number] PRN PRN Reason: Saline Flush Sodium Chloride () 250 mls @ 15 mls/hr IV .[id number] PRN PRN Reason: Additional IVPB Infusion Metoprolol Tartrate (Metoprolol Tartrate 50 Mg Tablet) 50 mg PO BID [facility] [place] Last Admin: 01/05/20 05:51 Dose: 50 mg Documented by: Ondansetron HCl (Ondansetron 4 Mg/2 Ml Vial) 4 mg IV Q8H PRN PRN PRN Reason: NAUSEA/VOMITING Paroxetine HCl (Paroxetine 20 Mg Tablet) 40 mg PO DAILY [facility] [place] Last Admin: 01/05/20 10:22 Dose: 40 mg Documented by: Potassium Chloride (Potassium Chloride 20 Meq Tablet) 20 meq PO DAILYCM [facility] [place] Last Admin: 01/05/20 10:22 Dose: 20 meq Documented by: Senna/Docusate Sodium (Senna/Docusate Sodium 1 Tablet) 2 tablet PO BID PRN PRN PRN Reason: Constipation Sodium Chloride (0.9% Saline Lock 10 Ml Syringe) 10 - 40 ml IV UD PRN PRN Reason: SALINE FLUSH Last Admin: 01/05/20 10:20 Dose: 10 ml Documented by: Sodium Chloride (0.9% Saline Lock 10 Ml Syringe) 10 - 40 ml IV UD PRN PRN Reason: SALINE FLUSH Assessment/Plan I agree with the above and the following is a reflection of my Independent history and exam ASSESSMENT Syncope Fall SVT Lactic acidosis Leukocytosis mild Rhabdomyolysis Back pain s/p fall BEATRICE Strokes HPL Depression Dementia PLAN -MRI neg -ECHO with EF of 60% and mod TVI -White count is down without ABX -suspect related to acute stress response -repeat in am -CK is trending down -sCr is improving -BB BID for SVT-->no further issues -check TSH -may needs cards if re occurs -continue home meds -Probable D/C tomorrow if stable and w/u neg -no fx noted and pain is controlled Inpatient E&M: 77120 Subs Hosp L2
[2020-01-05 14:55] LABS: Pathologist Review Reviewed
[2020-01-05 15:02] LABS: Magnesium 2.1 mg/dL (1.6-2.6); Thyroid Stim Hormone (TSH) 0.44 uIU/mL (0.358-3.74)
[2020-01-05] MEDS: Lactated Ringers 1,000 ML 60 ML IV (18:42)
[2020-01-05] MEDS: Atorvastatin Calcium 80 MG Tablet PO (21:57)
[2020-01-06] VITALS (8 sets, daily range): BP systolic 91–120; BP diastolic 38–74; PULSE 61–72; RESP 15–16; TEMP 36.8–37.4; O2SAT 91–100
[2020-01-06 06:14] LABS: Hematocrit 36.4 % (37-47); Hemoglobin 11.5 g/dL (12.0-15.0); Mean Corp Hgb Conc 31.6 g/dL (32-36); Mean Corpuscular Hgb 30.5 pg (27.0-32.0); Mean Corpuscular Volume 96.6 fL (81-99); Mean Platelet Vol. 10.3 fl (6.2-12.0); Platelet Count 230 K/mm3 (150-450); RBC Distribution Width CV 14.7 % (11.6-14.6); RBC Distribution Width SD 52.2 fl (35.1-43.9); Red Blood Count 3.77 M/mm3 (4.2-5.4); White Blood Count 8.8 K/mm3 (4.4-11.0)
[2020-01-06 06:47] LABS: Anion Gap 4 (5-15); BUN 14 mg/dL (7-18); BUN/Creat Ratio 21.4 RATIO (10-20); Calcium,Total 8.1 mg/dL (8.5-10.1); Chloride 112 mmol/L (98-107); Creatinine, Serum 0.66 mg/dL (0.55-1.02); EST Glomerular Filtration Rate 92 mL/min (>60); Est Glom Filt Rate - Afr Amer 112 mL/min (>60); Estimated Creatinine Clearance 36.08 ml/min; Glucose 92 mg/dL (74-106); Sodium Level 139 mmol/L (136-145)
[2020-01-06] MEDS: Metoprolol Tartrate 50 MG Tablet PO (09:32)
[2020-01-06] MEDS: Clopidogrel Bisulfate 75 MG Tablet PO (09:32)
[2020-01-06] MEDS: Enoxaparin 40 MG/0.4 ML Syringe SC (09:32)
[2020-01-06] MEDS: Paroxetine 20 MG Tablet 40 MG PO (09:32)
--- NOTE | 2020-01-06 11:19 | PCM.DC ---
- Discharge Diagnoses Current Active Problems: Current Active and Chronic Problems (Last Updated 01/04/20 @ 18:[address] 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 Hyperlipidemia (Chronic) You will use the following diet at home:: Cardiac Your food should be the consistency of: Regular Your liquids should be the consistency of: Regular/Thin Discharge Activity: Return to Normal Activity Allergies/Adverse Reactions: Allergies No Known Allergies Allergy (Verified 01/04/20 14:28) Medications to take at Discharge Atorvastatin Calcium [Lipitor] 40 mg PO QHS 01/04/20 Clopidogrel Bisulfate [Plavix] 75 mg PO DAILY 01/04/20 Ergocalciferol [Vitamin D] 50,000 unit PO QMONTH 01/04/20 Furosemide [Lasix] 20 mg PO DAILY 01/04/20 Memantine HCl/Donepezil HCl [Namzaric 28 mg-10 mg Capsule] 1 ea PO DAILY 01/04/20 Multivit-Min/Iron/Folic/Lutein [Centrum Silver Women Tablet] 1 ea PO DAILY 01/04/20 Paroxetine HCl [Paxil] 40 mg PO DAILY 01/04/20 Prevagen 20 mg PO DAILY 01/04/20 Metoprolol Tartrate [Lopressor (beta chace)] 50 mg PO BID #60 tab 01/06/20 The following prescriptions were given: Metoprolol Tartrate [Lopressor (beta chace)] 50 mg PO BID #60 tab Transmission Status: Received by [id number] Primary Care Physician: Geovanna Hurtado MD [Primary Care Provider] - Please follow up with your Primary Care Physician in: 1 week Test Results: Test results from this visit will be discussed in further detail at your follow-up appointment, if applicable. Proposed Discharge Date: 01/06/20
--- NOTE | 2020-01-06 13:27 | CASEMGMT ---
Pt's here and states they would [facility] set up thru [facility] at this time for PT/OT. Order placed and call to Celia at [facility] and she states that they can take pt at this time but SOC will not be until Friday. is aware and is fine with that at this time. Pt/ voice no further questions/concerns/needs at this time. Landon COLE CM
--- NOTE | 2020-01-06 14:41 | PCM.DC.SUM ---
<Shade Nunez - Last Filed: 01/06/20 14:41> Discharge Date and Diagnosis - Problem List Patient Problems: Active and Suspected Problems (Last Updated 01/04/20 @ 18:[address] Hilda Chisholm MD) Contusion of right lower leg, initial encounter (Acute) Contusion of right hip, initial encounter (Acute) Leukocytosis (Acute) Lactic acidosis (Acute) Unable to ambulate (Acute) Closed head injury (Acute) Date of Admission: 01/04/20 Date of Discharge: 01/06/20 - Primary Discharge Diagnosis Acute Problems: Active Problems (Last Updated 01/04/20 @ 18:[address] Hilda Chisholm MD) Contusion of right lower leg, initial encounter (Acute) Contusion of right hip, initial encounter (Acute) Fall, unclear etiology Leukocytosis (Acute) / Lactic acidosis (Acute) - unclear etiology, sepsis ruled out SVT-resolved with beta-chace Dementia Stroke ruled out - Secondary Discharge Diagnosis Chronic Problems: Chronic Problems (Last Updated 01/04/20 @ 18:[address] 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 RAD/HIP, UNI W/ Pelvis 2-3 Views IMPRESSION: Marked degree of joint space narrowing involving the right hip joint with marginal degenerative spurs of the femoral head. The patient is status post left hip replacement. RAD/Tibia & Fibula 2 Views IMPRESSION: No acute abnormality is seen. RAD/Chest 1 View (Portable) IMPRESSION: Normal x-ray examination of the chest. MRI/Brain without Contrast IMPRESSION: Involutional changes of the brain, as described above. 2D TTE: Interpretation Summary The estimated ejection fraction is 60 %. No evidence for diastolic dysfunction. Moderate (2+) tricuspid valve insufficiency. Operations: None Procedures: 2-D Echocardiogram Summary of Care Provided: Hospital course: The patient is a 79 year old F past medical history of dementia, multiple strokes, who presented to the emergency room with weakness, fall at home, unclear etiology. Patient had difficulty remembering what happened. She knows that she fell and at some point lost consciousness however she could not determine if this was before or after she fell. She had right hip and leg pain and did have significant bruising over these regions. She was found to have significant leukocytosis and lactic acidosis however had no clear evidence of an acute infectious process. Imaging of her hip and tib-fib were negative for acute fractures. CT of the brain was negative. MRI was obtained and did not demonstrate acute stroke. Patient was admitted to the PCU and placed on telemetry. An echocardiogram was obtained with results as above. She had an episode of SVT while on telemetry. This resolved with carotid massage. She was started on metoprolol and had no recurrent episodes, controlled pulse and blood pressure. She continued to have ongoing confusion. She worked with physical therapy and Occupational Therapy and did demonstrate need for ongoing physical therapy. She was discharged home with home health care. She will need to follow-up with her PCP in 1 week. This patient was seen by Shade Nunez PA-C under the supervision of Doctor Rausch. [] Patient Problems: Active and Suspected Problems (Last Updated 01/04/20 @ 18:[address] Hilda Chisholm MD) Contusion of right lower leg, initial encounter (Acute) Contusion of right hip, initial encounter (Acute) Leukocytosis (Acute) Lactic acidosis (Acute) Unable to ambulate (Acute) Closed head injury (Acute) - Physical Exam Vitals/I&O's: Vital Signs Temp Pulse Resp BP Pulse Ox 98.3 F 70 15 120/74 94 01/06/20 09:25 01/06/20 09:32 01/06/20 09:25 01/06/20 10:15 01/06/20 09:25 Oxygen Flow Rate (L/min) 2 Oxygen Delivery Method Room Air Weight: 148 lb 12.992 oz Body Mass Index (BMI) 27.2 Finger Stick Blood Glucose 92 Intake and Output for Last 24 Hours 01/04/20 01/05/20 01/06/20 23:59 23:59 23:59 Intake Total 672.5 / 772.5 2990.33 / 2990.33 50 / 50 Output Total 450 / 450 200 / 200 Balance 672.5 / 622.5 2540.33 / 2540.33 -150 / -150 General: Alert, Oriented x3, Cooperative HEENT: Atraumatic, PERRLA, EOMI, Normocephalic Neck: Supple, No JVD, Negative Carotid Bruits Lungs: Clear to auscultation, Normal air movement Cardiovascular: Regular rate, No murmurs Abdomen: Bowel Sounds Present, Soft, Non Tender Extremities: No edema, Capillary Refill Less than 3 Seconds Skin: No rashes, No breakdown Musculoskeletal: No Tenderness to Palpation of Joints or Extremities Neurological: Cranial nerves II-XII grossly intact Psych/Mental Status: Normal Affect, Appropriate, Alert and oriented to time, place, person, mood and affect Laboratory Results 01/05/20 05:48: Diff Path Review Reviewed 01/05/20 05:48: Magnesium 2.1, Troponin I < 0.015, TSH 0.44 01/06/20 05:50: WBC 8.8, RBC 3.77 L, Hgb 11.5 L, Hct 36.4 L, MCV 96.6, MCH 30.5, MCHC 31.6 L, RDW Std Deviation 52.2 H, RDW Coeff of Marl[place] 14.7 H, Plt Count 230, MPV 10.3 01/06/20 05:50: Sodium 139, Potassium 4.0, Chloride 112 H, Carbon Dioxide 23.0, Anion Gap 4 L, BUN 14, Creatinine 0.66, Estim Creat Clear Calc 36.08, Est GFR (MDRD) Af Amer 112, Est GFR (MDRD) Non-Af 92, BUN/Creatinine Ratio 21.4 H, Glucose 92, Calcium 8.1 L Current Medications Acetaminophen (Acetaminophen 325 Mg Tablet) 650 mg PO Q6H PRN PRN PRN Reason: Pain Score 1-10/Temp > 100.7 F Atorvastatin Calcium (Atorvastatin Calcium 80 Mg Tablet) 80 mg PO DAILY@2200 [facility] Last Admin: 01/05/20 21:57 Dose: 80 mg Documented by: Clopidogrel Bisulfate (Clopidogrel Bisulfate 75 Mg Tablet) 75 mg PO DAILY [facility] Last Admin: 01/06/20 09:32 Dose: 75 mg Documented by: Enoxaparin Sodium (Enoxaparin 40 Mg/0.4 Ml Syringe) 40 mg SC DAILY [facility] Last Admin: 01/06/20 09:32 Dose: 40 mg Documented by: Sodium Chloride () 250 mls @ 15 mls/hr IV .[id number] PRN PRN Reason: Saline Flush Sodium Chloride () 250 mls @ 15 mls/hr IV .[id number] PRN PRN Reason: Additional IVPB Infusion Metoprolol Tartrate (Metoprolol Tartrate 50 Mg Tablet) 50 mg PO BID [facility] Last Admin: 01/06/20 09:32 Dose: 50 mg Documented by: Ondansetron HCl (Ondansetron 4 Mg/2 Ml Vial) 4 mg IV Q8H PRN PRN PRN Reason: NAUSEA/VOMITING Paroxetine HCl (Paroxetine 20 Mg Tablet) 40 mg PO DAILY [facility] Last Admin: 01/06/20 09:32 Dose: 40 mg Documented by: Potassium Chloride (Potassium Chloride 20 Meq Tablet) 20 meq PO DAILYCM [facility] Last Admin: 01/06/20 08:07 Dose: 20 meq Documented by: Senna/Docusate Sodium (Senna/Docusate Sodium 1 Tablet) 2 tablet PO BID PRN PRN PRN Reason: Constipation Sodium Chloride (0.9% Saline Lock 10 Ml Syringe) 10 - 40 ml IV UD PRN PRN Reason: SALINE FLUSH Last Admin: 01/05/20 10:20 Dose: 10 ml Documented by: Sodium Chloride (0.9% Saline Lock 10 Ml Syringe) 10 - 40 ml IV UD PRN PRN Reason: SALINE FLUSH Discharge Diet: Low fat/ Low Cholesterol, 2000 mg Sodium Diet Discharge Activity: Return to Normal Activity Home Medications: Medications to take at Discharge Atorvastatin Calcium [Lipitor] 40 mg PO QHS 01/04/20 Clopidogrel Bisulfate [Plavix] 75 mg PO DAILY 01/04/20 Ergocalciferol [Vitamin D] 50,000 unit PO QMONTH 01/04/20 Furosemide [Lasix] 20 mg PO DAILY 01/04/20 Memantine HCl/Donepezil HCl [Namzaric 28 mg-10 mg Capsule] 1 ea PO DAILY 01/04/20 Multivit-Min/Iron/Folic/Lutein [Centrum Silver Women Tablet] 1 ea PO DAILY 01/04/20 Paroxetine HCl [Paxil] 40 mg PO DAILY 01/04/20 Prevagen 20 mg PO DAILY 01/04/20 Metoprolol Tartrate [Lopressor (beta chace)] 50 mg PO BID #60 tab 01/06/20 Following Prescriptions Were Given to Patient: Metoprolol Tartrate [Lopressor (beta chace)] 50 mg PO BID #60 tab Transmission Status: Received by SIMIAlfred GARSIA-[facility] Primary Care Physician: Geovanna Hurtado MD [Primary Care Provider] - Please follow up with your Primary Care Physician in: 1 week Please Follow Up With: Geovanna Hurtado MD Disposition: Home with Home Health Minutes spent on discharge:: 35 Medical Necessity - Tobacco Use Smoking Status: Former smoker Tobacco Use: Cigarettes Meaningful Use Info Meaningful Use Diagnoses (Choose all that apply): None applicable <Ramya Rausch - Last Filed: 01/06/20 16:00> Discharge Date and Diagnosis - Primary Discharge Diagnosis Acute Problems: Active Problems (Last Updated 01/04/20 @ 18:[address] Hilda Chisholm MD) Contusion of right lower leg, initial encounter (Acute) Contusion of right hip, initial encounter (Acute) Leukocytosis (Acute) Lactic acidosis (Acute) Unable to ambulate (Acute) Closed head injury (Acute) - Secondary Discharge Diagnosis Chronic Problems: Chronic Problems (Last Updated 01/04/20 @ 18:[address] 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 Hyperlipidemia (Chronic) Hospital Course and Treatment Summary of Care Provided: I agree with the above and the following is a reflection of my Independent history and exam ASSESSMENT Syncope Fall SVT Lactic acidosis -resolved Leukocytosis -resolved mild Rhabdomyolysis -resolved Back pain s/p fall BEATRICE H/O Strokes HPL Depression Dementia PLAN -MRI neg -ECHO with EF of 60% and mod TVI -White count elevation resolved without ABX -suspect related to acute stress response -sCr is improving -Metoprolol BID for SVT-->no further issues -TSH WNL -D/C Home today with Home Health for continued therapy Subjective: Pt states that she is feeling well, just a little weak, pain is better. No issues overnight. - Physical Exam Vitals/I&O's: Vital Signs Temp Pulse Resp BP Pulse Ox 98.3 F 61 16 107/51 L 100 01/06/20 09:25 01/06/20 14:41 01/06/20 14:41 01/06/20 14:41 01/06/20 14:41 Oxygen Flow Rate (L/min) 2 Oxygen Delivery Method Room Air Weight: 67.5 kg Body Mass Index (BMI) 27.2 Finger Stick Blood Glucose 92 Intake and Output for Last 24 Hours 01/04/20 01/05/20 01/06/20 23:59 23:59 23:59 Intake Total 672.5 / 772.5 2990.33 / 2990.33 525 / 525 Output Total 450 / 450 200 / 200 Balance 672.5 / 622.5 2540.33 / 2540.33 325 / 325 General: Alert, Oriented x3, Cooperative, No apparent distress, Well developed, Well nourished, - - older WF sitting up in chair, is at the bedside HEENT: Atraumatic, Normocephalic Oral: Moist Mucosa Neck: Supple, Trachea Midline Lungs: Clear to auscultation, Normal air movement, No rhonchi, No rales Cardiovascular: Regular rate, Regular Rhythm, Normal S2, No murmurs, No Ectopic Activity, No rub noted, No Gallop Abdomen: Bowel Sounds Present, Soft, Non Tender, Non-Distended, No Hepato-splenomegaly Extremities: No clubbing, No cyanosis, No edema, Capillary Refill Less than 3 Seconds, Peripheral Pulses Normal Skin: No rashes, No breakdown, - - worsening ecchymosis R lower lumbar and buttock Musculoskeletal: Tenderness - R back Neurological: Cranial nerves II-XII grossly intact, Neuro grossly intact Psych/Mental Status: Normal Affect, Appropriate, Alert and oriented to time, place, person, mood and affect Laboratory Results 01/06/20 05:50: WBC 8.8, RBC 3.77 L, Hgb 11.5 L, Hct 36.4 L, MCV 96.6, MCH 30.5, MCHC 31.6 L, RDW Std Deviation 52.2 H, RDW Coeff of Marlena 14.7 H, Plt Count 230, MPV 10.3 01/06/20 05:50: Sodium 139, Potassium 4.0, Chloride 112 H, Carbon Dioxide 23.0, Anion Gap 4 L, BUN 14, Creatinine 0.66, Estim Creat Clear Calc 36.08, Est GFR (MDRD) Af Amer 112, Est GFR (MDRD) Non-Af 92, BUN/Creatinine Ratio 21.4 H, Glucose 92, Calcium 8.1 L Meaningful Use Info Meaningful Use Diagnoses (Choose all that apply): None applicable Inpatient E&M: [id number] [facility]
--- NOTE | 2020-01-07 18:27 | CASEMGMT ---
DOUGLAS SHEPPARD Discharge Follow-up Phone Call: MAXIMO: Octavio Strata: 3 Call Date: 01/07/2020 Discharge Date: 01/06/2020 Time of Call: 1820 Admitting Diagnosis: Contusions s/p fall at home Discharge follow-up call placed to pt's cell phone number. Pt's Henry answered the phone. He reports that the patient has been doing well since discharge but that her blood pressure has been low. It was 94/53 with a HR of 62 last evening and it was 115/73 with a HR of 69 this morning. He states he has not given her the metoprolol. When asked if pt has c/o any dizziness he states she has been in the lounge chair most of the day but has not complained of any. Discussed follow-up with Dr. Hurtado's office with scheduled appointment on 01/16 but he can call their office prior to this to discuss BP's and medication management. Home health visit also to be made on Tuesday 01/09 which he is aware of and will contact them if he does not get a call to schedule a visit. He denies any further questions or concerns regarding pt's discharge instructions. Tapan Kaba RN CM
== END 2020-01-06 14:45 | disposition home health service (06) | DRG 641 ==
LOC: ED 18:19 → MS3 18:36 → PCU 19:03
PROVIDERS: Nurse Practitioner Family; Admitting Provider Hospitalist; Emergency Provider Emergency Medicine; PCP Internal Medicine; Visit Provider Internal Medicine
DX: E87.2 Acidosis (principal); M62.82 Rhabdomyolysis; I47.1 Supraventricular tachycardia; N17.9 Acute kidney failure, unspecified; R55 Syncope and collapse; R29.6 Repeated falls; R53.81 Other malaise; E78.5 Hyperlipidemia, unspecified; S09.90XA Unspecified injury of head, initial encounter; S80.11XA Contusion of right lower leg, initial encounter; S70.01XA Contusion of right hip, initial encounter; F03.90 Unspecified dementia, unspecified severity, without behavioral disturbance, psychotic disturbance, mood disturbance, and anxiety; F32.9 Major depressive disorder, single episode, unspecified; F41.9 Anxiety disorder, unspecified; W01.10XA Fall on same level from slipping, tripping and stumbling with subsequent striking against unspecified object, initial encounter; Y93.9 Activity, unspecified; Y92.9 Unspecified place or not applicable; Y99.9 Unspecified external cause status; R30.0 Dysuria; R35.0 Frequency of micturition; Z79.02 Long term (current) use of antithrombotics/antiplatelets; Z79.899 Other long term (current) drug therapy; Z96.642 Presence of left artificial hip joint; Z96.652 Presence of left artificial knee joint; Z86.73 Personal history of transient ischemic attack (TIA), and cerebral infarction without residual deficits
CPT/HCPCS: 36415; 51702; 70450; 70551; 71045; 73502; 73590; 80048; 80076; 81001; 82550; 83605; 83735; 84443; 84484; 85025; 85027; 85610; 87040; 87086; 87088; 93005; 93306; 97110; 97162; 97166; 97535; 99283; J7030; J7120; A4216; J2405

== ENCOUNTER → 2020-01-20 14:40 | Outpatient (CLI) | payer MEDICARE, SELFPAY ==
--- NOTE | 2020-01-20 14:43 | RAD_ITS ---
HISTORY: low back pain, s/p fall at home COMPARISON: X-rays of the lumbar spine from September 18, 2018 FINDINGS: # of images incl. paperwork: 4 XR Spine Lumbar 2 or 3 Views: Posterior spinal fixation at the L3-L5 levels remains. Laminectomies at L3 and L4 remain. Gentle levoscoliosis is more accentuated than previously. Degenerative disc disease at every level persists. This degenerative disc disease is manifested by loss of disc height, endplate sclerosis, and anterior and posterior enthesophytes. Modic type endplate sclerosis is most severe at the L1-L2 level. L1 is posteriorly subluxed on L2 by a few millimeters. This disease has slightly progressed since the August 2018 study. Atherosclerotic plaque within the abdominal aorta persists. Left hip prosthesis remains. Right hip arthritis remains. RAD/Lumbar Spine 2 or 3 Views IMPRESSION: Stable appearance to posterior fixation of L3-L5. Worsening disc disease at the L1-L2 level with increased sclerosis, increased vacuum disc phenomenon. Multilevel degenerative disc disease otherwise is similar. at 0556 Reported and signed by: Rigoberto Wiley MD Electronically Signed: Rigoberto Wiley MD at 5:54 EDT Tel , Service support ,
== END ==
PROVIDERS: PCP Internal Medicine; Referring Provider Internal Medicine; Visit Provider Internal Medicine
DX: M54.5 Low back pain (principal); S20.229A Contusion of unspecified back wall of thorax, initial encounter; W19.XXXA Unspecified fall, initial encounter
CPT/HCPCS: 72100

== ENCOUNTER → 2020-01-24 12:52 | Outpatient (CLI) | payer MEDICARE, SELFPAY | PROVIDERS: PCP Internal Medicine; Referring Provider Internal Medicine; Visit Provider Internal Medicine | DX: I47.1 Supraventricular tachycardia (principal) | CPT/HCPCS: 93225; 93226 ==

== ENCOUNTER → 2020-03-23 11:03 | Outpatient (CLI) | payer MEDICARE, SELFPAY ==
[2020-03-07 13:33] VITALS: BMI 27.4
[2020-03-23 11:19] LABS: Bacteria 0 SEEN /hpf (None Seen); Mucous, Urine 0 SEEN /hpf (<or=2+); Red Blood Cells-Urine 0 SEEN /hpf (0-5); White Blood Cells 0 SEEN /hpf (0-5)
[2020-03-23 12:20] LABS: Color, Urine Yellow (Yellow); Glucose, Dipstick Normal (Normal); Ketone-Dipstick Negative (Negative); Leukocyte Esterase-Dipstick 25 /ul (Negative); Nitrite-Dipstick Negative (Negative); Occult Blood-Urine Negative /ul (Negative); Protein-Dipstick Negative (Negative); Urine Bilirubin Dipstick Negative (Negative); Urine Clarity Clear (Clear); Urine Urobilinogen Normal (Normal)
[2020-03-23 12:26] LABS: Squamous Epithelial Cells - UA 0-5 SEEN /hpf (5-10)
== END ==
PROVIDERS: PCP Internal Medicine; Referring Provider Internal Medicine; Visit Provider Internal Medicine
DX: R30.0 Dysuria (principal)
CPT/HCPCS: 81001; 87086; 87088

== ENCOUNTER → 2020-04-03 11:28 | Outpatient (CLI) | payer MEDICARE, SELFPAY ==
[2020-04-03 12:47] LABS: Absolute Lymphocyte Count 2.88 X10^3/uL (0.83-4.51); Absolute Neutrophil Count 4.3 X10^3/uL (2.0-7.7); Basophil# 0.05 X10^3/uL; Basophil% 0.6 % (0-1); Eosinophil# 0.14 X10^3/uL; Eosinophils% 1.7 % (0-5); Hematocrit 47.4 % (37-47); Hemoglobin 15.1 g/dL (12.0-15.0); Lymphocyte # 2.88 X10^3/ul (4.0); Lymphocyte % 35.9 % (19-41); Mean Corp Hgb Conc 31.9 g/dL (32-36); Mean Corpuscular Hgb 30.5 pg (27.0-32.0); Mean Corpuscular Volume 95.8 fL (81-99); Mean Platelet Vol. 11.1 fl (6.2-12.0); Monocyte# 0.68 X10^3/uL; Monocyte% 8.5 % (0-10); NRBC Flagged by Analyzer 0 % (0-5); Neutrophil # 4.27 X10^3/uL (2.7-7.7); Neutrophil % 53.2 % (47-70); Platelet Count 273 K/mm3 (150-450); RBC Distribution Width CV 12.3 % (11.6-14.6); RBC Distribution Width SD 43.4 fl (35.1-43.9); Red Blood Count 4.95 M/mm3 (4.2-5.4)
[2020-04-03 13:38] LABS: AST(SGOT) 17 U/L (15-37); Alanine Aminotransfer ALT/SGPT 12 U/L (13-56); Albumin, Serum 3.7 g/dL (3.2-5.0); Alkaline Phosphatase 166 U/L (45-117); Anion Gap 8 (5-15); BUN 13 mg/dL (7-18); BUN/Creat Ratio 15.7 RATIO (10-20); Calcium,Total 8.9 mg/dL (8.5-10.1); Chloride 106 mmol/L (98-107); Cholesterol 174 mg/dL (200); Creatinine, Serum 0.83 mg/dL (0.55-1.02); EST Glomerular Filtration Rate 71 mL/min (>60); Est Glom Filt Rate - Afr Amer 85 mL/min (>60); Globulin 3.7 g/dL (2.2-4.2); Glucose 111 mg/dL (74-106); High Density Lipoprotein 65 mg/dL; Potassium 3.7 mmol/L (3.5-5.1); Protein, Total 7.4 g/dL (6.4-8.2); Sodium Level 141 mmol/L (136-145); Triglycerides 186 mg/dL; Very Low Density Lipoprotein 37 mg/dL (5-40)
== END ==
PROVIDERS: PCP Internal Medicine; Referring Provider Internal Medicine; Visit Provider Internal Medicine
DX: E78.5 Hyperlipidemia, unspecified (principal); S80.11XA Contusion of right lower leg, initial encounter; X58.XXXA Exposure to other specified factors, initial encounter; Y93.9 Activity, unspecified; Y92.9 Unspecified place or not applicable; Y99.9 Unspecified external cause status; Z86.73 Personal history of transient ischemic attack (TIA), and cerebral infarction without residual deficits
CPT/HCPCS: 36415; 80053; 80061; 85025

== ENCOUNTER → 2020-04-04 | Outpatient (CLI) | payer MEDICARE, SELFPAY ==
[2020-04-04 14:13] LABS: Mucous, Urine 0 SEEN /hpf (<or=2+); Red Blood Cells-Urine 0 SEEN /hpf (0-5)
[2020-04-04 15:59] LABS: Color, Urine Yellow (Yellow); Glucose, Dipstick Normal (Normal); Ketone-Dipstick Negative (Negative); Leukocyte Esterase-Dipstick 100 /ul (Negative); Nitrite-Dipstick Negative (Negative); Occult Blood-Urine Negative /ul (Negative); Protein-Dipstick Negative (Negative); Urine Bilirubin Dipstick Negative (Negative); Urine Clarity Sl. Cloudy (Clear); Urine Urobilinogen Normal (Normal)
[2020-04-04 16:37] LABS: Bacteria 1+ /hpf (None Seen); Squamous Epithelial Cells - UA 0-5 SEEN /hpf (5-10); White Blood Cells 0-5 SEEN /hpf (0-5)
== END | disposition home or self-care (01) ==
LOC: LABSPEC 14:12
PROVIDERS: PCP Internal Medicine; Referring Provider Internal Medicine; Visit Provider Internal Medicine
DX: R30.0 Dysuria (principal)
CPT/HCPCS: 81001; 87086; 87088

== ENCOUNTER → 2020-04-17 11:10 | Outpatient (CLI) | payer MEDICARE, SELFPAY ==
[2020-04-17 13:50] LABS: Alkaline Phosphatase 172 U/L (45-117)
== END ==
PROVIDERS: PCP Internal Medicine; Referring Provider Internal Medicine; Visit Provider Internal Medicine
DX: R74.8 Abnormal levels of other serum enzymes (principal)
CPT/HCPCS: 36415; 84075

== ENCOUNTER → 2020-06-12 09:44 | Outpatient (CLI) | payer MEDICARE, SELFPAY ==
--- NOTE | 2020-06-12 09:47 | RAD_ITS ---
STUDY: X-RAY - ESOPHAGUS (BARIUM SWALLOW) WITH FLUOROSCOPY REASON FOR EXAM: Female, 80 years old. DYSPHAGIA TECHNIQUE: 14 view(s) of the esophagus were obtained following swallowing of barium. FLUOROSCOPY TIME (if supplied): (0:37) minutes/seconds COMPARISON: None. FINDINGS: There is no demonstrated esophageal foreign body. There is no demonstrated stricture or mucosal abnormality. Normal gastroesophageal junction, without a demonstrated hiatal hernia. The patient ingested a 12 mm tablet of barium without any difficulty. There is atherosclerotic calcification of the aortic arch with tortuosity of the descending aorta. Normal visualized pulmonary parenchyma. There are diffuse degenerative changes of the visualized thoracic spine. RAD/Esophagus Single Contrast IMPRESSION: Normal plain film x-ray examination (barium swallow) of the esophagus. Electronically Signed: Theo Weller MD at 10:48 EDT , Service support ,
== END ==
PROVIDERS: PCP Internal Medicine; Referring Provider Otolaryngology; Visit Provider Otolaryngology
DX: R13.10 Dysphagia, unspecified (principal)
CPT/HCPCS: 74220

== ENCOUNTER → 2020-12-08 13:56 | Outpatient (CLI) | payer MEDICARE, SELFPAY ==
[2020-12-08 15:15] LABS: Absolute Lymphocyte Count 2.64 X10^3/uL (0.83-4.51); Basophil# 0.04 X10^3/uL; Basophil% 0.5 % (0-1); Eosinophil# 0.14 X10^3/uL; Eosinophils% 1.6 % (0-5); Hematocrit 42.5 % (37-47); Hemoglobin 13.9 g/dL (12.0-15.0); Lymphocyte # 2.64 X10^3/ul (0.83-4.51); Lymphocyte % 30.2 % (19-41); Mean Corp Hgb Conc 32.7 g/dL (32-36); Mean Corpuscular Hgb 31.8 pg (27.0-32.0); Mean Corpuscular Volume 97.3 fL (81-99); Mean Platelet Vol. 10.6 fl (6.2-12.0); Monocyte# 0.89 X10^3/uL; Monocyte% 10.2 % (0-10); NRBC Flagged by Analyzer 0 % (0-5); Neutrophil # 5.01 X10^3/uL (2.7-7.7); Neutrophil % 57.2 % (47-70); Platelet Count 256 K/mm3 (150-450); RBC Distribution Width CV 12.3 % (11.6-14.6); RBC Distribution Width SD 44.5 fl (35.1-43.9); Red Blood Count 4.37 M/mm3 (4.2-5.4); White Blood Count 8.8 K/mm3 (4.4-11.0)
[2020-12-08 15:25] LABS: Vitamin D,25 Hydroxy 61.6 ng/mL
[2020-12-08 15:33] LABS: ALB/GLOB Ratio 0.9 RATIO (0.9-2.4); AST(SGOT) 20 U/L (15-37); Alanine Aminotransfer ALT/SGPT 24 U/L (13-56); Albumin, Serum 3.5 g/dL (3.2-5.0); Alkaline Phosphatase 143 U/L (45-117); Anion Gap 5 (5-15); BUN 12 mg/dL (7-18); BUN/Creat Ratio 16.4 RATIO (10-20); Calcium,Total 9.4 mg/dL (8.5-10.1); Chloride 108 mmol/L (98-107); Cholesterol 188 mg/dL (200); Creatinine, Serum 0.73 mg/dL (0.55-1.02); EST Glomerular Filtration Rate 81 mL/min (>60); Est Glom Filt Rate - Afr Amer 98 mL/min (>60); Globulin 3.9 g/dL (2.2-4.2); Glucose 110 mg/dL (74-106); High Density Lipoprotein 68 mg/dL; Potassium 4.2 mmol/L (3.5-5.1); Protein, Total 7.4 g/dL (6.4-8.2); Sodium Level 143 mmol/L (136-145); Thyroid Stim Hormone (TSH) 0.81 uIU/mL (0.358-3.74); Triglycerides 257 mg/dL; Very Low Density Lipoprotein 51 mg/dL (5-40)
== END ==
PROVIDERS: PCP Internal Medicine; Referring Provider Internal Medicine; Visit Provider Internal Medicine
DX: E78.5 Hyperlipidemia, unspecified (principal); R41.3 Other amnesia; M19.90 Unspecified osteoarthritis, unspecified site; S09.90XA Unspecified injury of head, initial encounter; X58.XXXA Exposure to other specified factors, initial encounter; Y93.9 Activity, unspecified; Y92.9 Unspecified place or not applicable; Y99.9 Unspecified external cause status; E55.9 Vitamin D deficiency, unspecified; F32.9 Major depressive disorder, single episode, unspecified; Z86.73 Personal history of transient ischemic attack (TIA), and cerebral infarction without residual deficits
CPT/HCPCS: 36415; 80053; 80061; 82306; 84443; 85025

== ENCOUNTER → 2021-12-27 | Outpatient (CLI) | payer MEDICARE, SELFPAY ==
[2021-12-27 14:33] LABS: Absolute Lymphocyte Count 3.63 X10^3/uL (0.83-4.51); Absolute Neutrophil Count 6.7 X10^3/uL (2.0-7.7); Basophil# 0.05 X10^3/uL; Basophil% 0.4 % (0-1); Eosinophil# 0.13 X10^3/uL; Eosinophils% 1.1 % (0-5); Hematocrit 45.5 % (37-47); Hemoglobin 14.8 g/dL (12.0-15.0); Lymphocyte # 3.63 X10^3/ul (0.83-4.51); Lymphocyte % 31.1 % (19-41); Mean Corp Hgb Conc 32.5 g/dL (32-36); Mean Corpuscular Hgb 31.7 pg (27.0-32.0); Mean Corpuscular Volume 97.4 fL (81-99); Monocyte# 1.12 X10^3/uL; Monocyte% 9.6 % (0-10); NRBC Flagged by Analyzer 0 % (0-5); Neutrophil # 6.71 X10^3/uL (2.7-7.7); Neutrophil % 57.5 % (47-70); Platelet Count 275 K/mm3 (150-450); RBC Distribution Width CV 12.5 % (11.6-14.6); RBC Distribution Width SD 44.5 fl (35.1-43.9); Red Blood Count 4.67 M/mm3 (4.2-5.4); White Blood Count 11.7 K/mm3 (4.4-11.0)
[2021-12-27 16:08] LABS: ALB/GLOB Ratio 0.9 RATIO (0.9-2.4); AST(SGOT) 25 U/L (15-37); Alanine Aminotransfer ALT/SGPT 32 U/L (13-56); Albumin, Serum 3.8 g/dL (3.2-5.0); Alkaline Phosphatase 155 U/L (45-117); Anion Gap 8 (5-15); BUN 11 mg/dL (7-18); BUN/Creat Ratio 12.7 RATIO (10-20); Calcium,Total 9.8 mg/dL (8.5-10.1); Chloride 108 mmol/L (98-107); Cholesterol 169 mg/dL (200); Creatinine, Serum 0.87 mg/dL (0.55-1.02); EST Glomerular Filtration Rate 67 mL/min (>60); Est Glom Filt Rate - Afr Amer 80 mL/min (>60); Free T3 2.7 pg/mL (2.18-3.98); Globulin 4.1 g/dL (2.2-4.2); Glucose 173 mg/dL (74-106); High Density Lipoprotein 68 mg/dL; Potassium 3.8 mmol/L (3.5-5.1); Protein, Total 7.9 g/dL (6.4-8.2); Sodium Level 142 mmol/L (136-145); T4 Free Direct 0.83 ng/dL (0.76-1.46); Thyroid Stim Hormone (TSH) 1.07 uIU/mL (0.358-3.74); Triglycerides 152 mg/dL; Very Low Density Lipoprotein 30 mg/dL (5-40)
[2021-12-27 16:21] LABS: Vitamin B12 > 2000 pg/mL (211-911); Vitamin D,25 Hydroxy 67.7 ng/mL
== END | disposition home or self-care (01) ==
PROVIDERS: PCP Internal Medicine; Visit Provider Internal Medicine
DX: E78.5 Hyperlipidemia, unspecified (principal); E55.9 Vitamin D deficiency, unspecified; F32.9 Major depressive disorder, single episode, unspecified; R41.3 Other amnesia; R53.83 Other fatigue
CPT/HCPCS: 36415; 80053; 80061; 82306; 82607; 84439; 84443; 84481; 85025

== ENCOUNTER → 2022-08-02 | Outpatient (CLI) | payer MEDICARE, SELFPAY ==
--- NOTE | 2022-08-02 16:00 | ST.MBS ---
Modified Barium Swallow - Patient Information Study Date: 08/02/22 Study Time: 13:00 Direct Billable Minutes: 76 Total Minutes procedure & reportin Diagnosis: Dysphagia (R13.10) Referring Physician: Geovanna Hurtado Reason for Referral: Objectively assess swallow function, assess risk for aspiration, and determine recommendations for least restrictive diet textures and compensatory strategies to improve safety of swallow. Medical History: Patient is an 82-year-old female with PMH including arthritis, CVA, DDD lumbar, depression, and short term memory loss. Pt referred for MBSS from PCP due to reporting increased coughing with foods. Per , patient feels that foods get cough and begins coughing/choking every meal. She has never required the Heimlich and has always been able to breathe through the incidences. Per , she has most difficulty with nuts, meats like chicken and beef, and raw vegetables. She has had increased difficulty swallowing in the past 4-5 months per report. Per , CVAs occurred ~2008 and 2009 with mini strokes following. Speech therapy for aphasia initiated after both strokes. No history of dysphagia after CVAs. Current Diet Ordered: Regular textures / Thin liquids Dentition: Partials Mental Status: Impaired - Required frequent repetition of instructions, hx of short term memory loss Respiratory Status: Oxygenating on Room Air - Penetration-Aspiration Scale Penetration-Aspiration Scale: OBJECTIVE ASSESSMENT OF SWALLOW FUNCTION (QUANTITATIVE ? PER TRIAL): PENETRATION / ASPIRATION SCALE (PRATT): 1 = does not enter airway 2 = enters airway/above vocal folds/ejected 3 = enters airway/above vocal folds/not ejected 4 = enters airway/contacts vocal folds/ejected 5 = enters airway/contacts vocal folds/not ejected 6 = enters airway/below vocal folds/ejected 7 = enters airway/below vocal folds/not ejected despite effort 8 = enters airway/below vocal folds/no effort VIDEOFLOROSCOPIC SCALE SCORE (PRATT): Grade I = aspiration of material that has penetrated into the laryngeal vestibule, intact cough reflex Grade II = aspiration < 10 % of the bolus, intact cough reflex Grade III = aspiration of < 10 % of the bolus, reduced cough reflex or aspiration of > 10 % of the bolus, intact cough reflex Grade IV = aspiration of > 10 % of the bolus, reduced cough reflex - Penetration-Aspiration Scale Score Thin Liquid via teaspoon Result: 1= does not enter airway Thin Liquid via teaspoon Trial 2 Result: 1= does not enter airway Thin Liquid via large single sip from cup Result: 1= does not enter airway Thin Liquid via sequential sips from cup Result: 1= does not enter airway [place] Thick Liquid via large single sip from cup Result: 1= does not enter airway Pudding via teaspoon with esophageal screen Result: 1= does not enter airway Thin Liquid via sequential sips from straw with esophageal screen Result: 1= does not enter airway 1/2 Cookie Result: 1= does not enter airway - Oral Phase Labial Seal: No Labial Escape Tongue Control During Bolus Hold: Posterior escape of greater than half of bolus Bolus Preparation/Mastication: Slow prolonged chewing/mashing with complete recollection Bolus Transport/Lingual Motion: Delayed initiation of tongue motion Oral Residue: Residue collection on oral structures - Pharyngeal Phase Initiation of Pharyngeal Swallow: Bolus head in pyriforms Soft Palate Elevation: No bolus between soft palate and pharyngeal wall Laryngeal Elevation: Comp. Superior move thyroid cart w/comp. apprx arytenoid cart-epig pet Anterior Hyoid Excursion: Partial anterior movement Epiglottic Movement: Complete inversion Laryngeal Vestibule Closure at Height of Swallow: Complete; no air/contrast in laryngeal vestibule Pharyngeal Stripping Wave: Present - diminished Pharyngoesophageal Segment Opening: Parital distension and partial duration; parital obstruction of flow Tongue Base Retraction: Wide column of contrast between tongue base & post. pharyngeal wall Pharyngeal Residue: Collection of residue within or on pharyngeal structures - Esophageal Phase Esophageal Clearance: Esophageal retention w/ retrograde flow below pharyngoesophageal seg. - Diagnosis/Impression Diagnosis: Mild oropharyngeal phase dysphagia (R13.12), Esophageal dysphagia (R13.14) Impression: The oral phase is primarily marked by... -Decreased bolus control with >1/2 of the bolus spilling posteriorly to the posterior surface of the epiglottis (cookie) and pyriforms (thin liquids) prior to swallow onset. -Delayed tongue motion for A-P transport. -Mild oral residue after the swallow, most notable with large or sequential sips. Residue mostly cleared with independent initiation of a second swallow as needed. -Prolonged, but adequate mastication of cookie trial. The pharyngeal phase is primarily marked by... -Decreased anterior hyoid excursion; however, good airway closure was demonstrated during the study. No laryngeal penetration or aspiration of any consistencies. -Moderately decreased tongue base retraction, mildly decreased UES opening/duration, and mildly decreased pharyngeal stripping wave with resulting mild-moderate pharyngeal residues after the swallow. Pharyngeal residue was most notable with large or sequential sips of liquids. The esophageal phase is primarily marked by... -Esophageal retention of pudding in lower esophagus with retrograde flow observed, which remained below the upper esophageal sphincter (UES). Thin liquid wash helped to clear pudding; however, thin liquids also resulted in retention in the lower esophagus and had slowed emptying through the lower esophageal sphincter (LES). -Small CP bar present at the level of C5, but did not appear to impact bolus clearance through the UES. - Recommendations Diet: Thin Liquids - Easy to Chew textures (IDDSI Level 7) Compensatory Strategies: Small Bites, Small Sips, Slow Rate, Alternate bites/solids and sips/liquids - 1:1 ratio, Sitting upright, Remain sitting upright for 30 minutes after PO intake, Assist with verbal cues to use recommended strategies Supervision: 1:1 Close Supervision Recommend Repeat Modified Barium Swallow: No Need for Skilled Speech Therapy Services: Yes Comment: Will recommend the patient for outpatient dysphagia therapy to address mild deficits in oropharyngeal swallow function. Will recommend the patient for oropharyngeal strengthening to improve lingual control, hyoid excursion, tongue base retraction, and pharyngeal contraction (lingual resistance exercises, Mindy, effortful). The patient and would benefit from thorough education regarding diet recommendations and recommended compensatory strategies. Recommended Referrals: GI Consult - esophageal retention of pudding in lower esophagus, slowed emptying of liquids through lower esophageal sphincter Education Completed: 1. Described result of evaluation., 4. Family/caregivers understand evaluation & agree w/ goals & tx plan., 7. Pt requires further education on strategies & risks. - Status Active ST Patient: Active - Contact Information [facility]:: Marifer Johansen M.A. [facility] Speech-Language Pathologist [facility] [address] [place] [address] [email or web address] [phone] 08/02/22 16:10
== END | disposition home or self-care (01) ==
PROVIDERS: PCP Internal Medicine; Referring Provider Internal Medicine; Visit Provider Internal Medicine
DX: R13.10 Dysphagia, unspecified (principal)
CPT/HCPCS: 74230; 92611

== ENCOUNTER → 2023-06-16 | Outpatient (CLI) | payer MEDICARE, SELFPAY ==
[2023-06-16 16:21] LABS: Absolute Lymphocyte Count 2.58 X10^3/uL (0.83-4.51); Absolute Neutrophil Count 5.6 X10^3/uL (2.0-7.7); Basophil# 0.04 X10^3/uL; Basophil% 0.4 % (0-1); Eosinophil# 0.13 X10^3/uL; Eosinophils% 1.4 % (0-5); Hemoglobin 14.2 g/dL (12.0-15.0); Lymphocyte # 2.58 X10^3/ul (0.83-4.51); Lymphocyte % 27.9 % (19-41); Mean Corpuscular Hgb 31.8 pg (27.0-32.0); Mean Corpuscular Volume 96.4 fL (81-99); Mean Platelet Vol. 10.1 fl (6.2-12.0); Monocyte# 0.91 X10^3/uL; Monocyte% 9.8 % (0-10); NRBC Flagged by Analyzer 0 % (0-5); Neutrophil # 5.55 X10^3/uL (2.7-7.7); Neutrophil % 60.1 % (47-70); Platelet Count 275 K/mm3 (150-450); RBC Distribution Width CV 12.3 % (11.6-14.6); RBC Distribution Width SD 43.8 fl (35.1-43.9); Red Blood Count 4.46 M/mm3 (4.2-5.4); White Blood Count 9.3 K/mm3 (4.4-11.0)
[2023-06-16 17:24] LABS: AST(SGOT) 20 U/L (15-37); Alanine Aminotransfer ALT/SGPT 18 U/L (13-56); Albumin, Serum 3.6 g/dL (3.2-5.0); Alkaline Phosphatase 150 U/L (45-117); Anion Gap 5 (5-15); BUN 10 mg/dL (7-18); BUN/Creat Ratio 13.5 RATIO (10-20); Calcium,Total 9.4 mg/dL (8.5-10.1); Chloride 109 mmol/L (98-107); Cholesterol 160 mg/dL (200); Creatinine, Serum 0.74 mg/dL (0.55-1.02); EST Glomerular Filtration Rate 79 mL/min (>60); Est Glom Filt Rate - Afr Amer 96 mL/min (>60); Globulin 3.5 g/dL (2.2-4.2); Glucose 82 mg/dL (74-106); High Density Lipoprotein 79 mg/dL; Potassium 3.9 mmol/L (3.5-5.1); Protein, Total 7.1 g/dL (6.4-8.2); Sodium Level 141 mmol/L (136-145); Thyroid Stim Hormone (TSH) 0.66 uIU/mL (0.358-3.74); Triglycerides 128 mg/dL; Very Low Density Lipoprotein 26 mg/dL (5-40)
[2023-06-16 17:58] LABS: Hepatitis C Antibody Non-Reactive (Nonreactive); Vitamin D,25 Hydroxy 95.6 ng/mL
== END | disposition home or self-care (01) ==
PROVIDERS: PCP Family Medicine Geriatric Medicine; Visit Provider Family Medicine Geriatric Medicine
DX: Z13.89 Encounter for screening for other disorder (principal); I10 Essential (primary) hypertension; E78.5 Hyperlipidemia, unspecified; E55.9 Vitamin D deficiency, unspecified
CPT/HCPCS: 36415; 80053; 80061; 82306; 84443; 85025; 86803

== ENCOUNTER → 2023-07-04 | Outpatient (CLI) | payer MEDICARE, SELFPAY | END | disposition home or self-care (01) | PROVIDERS: PCP Family Medicine Geriatric Medicine; Referring Provider Family Medicine Geriatric Medicine; Visit Provider Family Medicine Geriatric Medicine | DX: R06.02 Shortness of breath (principal) | CPT/HCPCS: 94060 ==

== ENCOUNTER → 2023-12-15 | Outpatient (CLI) | payer MEDICARE, SELFPAY ==
[2023-12-15 13:49] LABS: Absolute Lymphocyte Count 2.72 X10^3/uL (0.83-4.51); Absolute Neutrophil Count 6.7 X10^3/uL (2.0-7.7); Basophil# 0.05 X10^3/uL; Basophil% 0.5 % (0-1); Eosinophil# 0.13 X10^3/uL; Eosinophils% 1.2 % (0-5); Hematocrit 44.2 % (37-47); Hemoglobin 14.5 g/dL (12.0-15.0); Lymphocyte # 2.72 X10^3/ul (0.83-4.51); Lymphocyte % 25.6 % (19-41); Mean Corp Hgb Conc 32.8 g/dL (32-36); Mean Corpuscular Hgb 30.6 pg (27.0-32.0); Mean Corpuscular Volume 93.2 fL (81-99); Mean Platelet Vol. 10.4 fl (6.2-12.0); Monocyte# 1.01 X10^3/uL; Monocyte% 9.5 % (0-10); NRBC Flagged by Analyzer 0 % (0-5); Neutrophil # 6.71 X10^3/uL (2.7-7.7); Platelet Count 301 K/mm3 (150-450); RBC Distribution Width CV 11.9 % (11.6-14.6); RBC Distribution Width SD 41.1 fl (35.1-43.9); Red Blood Count 4.74 M/mm3 (4.2-5.4); White Blood Count 10.6 K/mm3 (4.4-11.0)
[2023-12-15 14:15] LABS: Vitamin D,25 Hydroxy 42.5 ng/mL
[2023-12-15 14:26] LABS: ALB/GLOB Ratio 0.9 RATIO (0.9-2.4); AST(SGOT) 18 U/L (15-37); Alanine Aminotransfer ALT/SGPT 14 U/L (13-56); Albumin, Serum 3.5 g/dL (3.2-5.0); Alkaline Phosphatase 161 U/L (45-117); Anion Gap 4 (5-15); BUN 6 mg/dL (7-18); BUN/Creat Ratio 6.9 RATIO (10-20); Calcium,Total 9.5 mg/dL (8.5-10.1); Chloride 107 mmol/L (98-107); Creatinine, Serum 0.86 mg/dL (0.55-1.02); EST Glomerular Filtration Rate 67 mL/min (>60); Est Glom Filt Rate - Afr Amer 81 mL/min (>60); Globulin 3.7 g/dL (2.2-4.2); Glucose 153 mg/dL (74-106); Potassium 3.5 mmol/L (3.5-5.1); Protein, Total 7.2 g/dL (6.4-8.2); Sodium Level 141 mmol/L (136-145); Thyroid Stim Hormone (TSH) 0.766 uIU/mL (0.358-3.740)
[2023-12-15 17:48] LABS: Hemoglobin A1c 5.6 % (3.8-5.6)
== END | disposition home or self-care (01) ==
LOC: POLAB3 13:24
PROVIDERS: PCP Family Medicine Geriatric Medicine; Visit Provider Family Medicine Geriatric Medicine
DX: I10 Essential (primary) hypertension (principal); E55.9 Vitamin D deficiency, unspecified; R73.09 Other abnormal glucose
CPT/HCPCS: 36415; 80053; 82306; 83036; 84443; 85025

== ENCOUNTER → 2024-05-11 | Outpatient (CLI) | payer MEDICARE, SELFPAY | END | disposition home or self-care (01) | LOC: PSN 12:35 | PROVIDERS: PCP Family Medicine Geriatric Medicine; Referring Provider Family Medicine Geriatric Medicine; Visit Provider Family Medicine Geriatric Medicine | DX: U07.1 COVID-19 (principal) | CPT/HCPCS: 87631 ==

== ENCOUNTER → 2024-06-17 | Outpatient (CLI) | payer MEDICARE, SELFPAY ==
[2024-06-17 17:11] LABS: ALB/GLOB Ratio 1.6 RATIO (0.9-2.4); AST(SGOT) 24 U/L (<=31); Alanine Aminotransfer ALT/SGPT 13 U/L (<=34); Albumin, Serum 3.5 g/dL (3.4-4.8); Alkaline Phosphatase 136 U/L (35-104); Anion Gap 16 (5-15); BUN 7 mg/dL (4-19); BUN/Creat Ratio 10.3 RATIO (10-20); Chloride 105 mmol/L (98-108); Creatinine, Serum 0.71 mg/dL (0.70-1.20); EST Glomerular Filtration Rate 84 (>60); Globulin 2.3 g/dL (2.2-4.2); Glucose 122 mg/dL (70-99); Potassium 3.8 mmol/L (3.3-5.1); Protein, Total 5.7 g/dL (5.9-8.4); Sodium Level 143 mmol/L (133-145); Total Bilirubin 0.61 mg/dL (0.00-1.30)
[2024-06-17 17:12] LABS: Thyroid Stim Hormone (TSH) 0.982 uIU/mL (0.300-4.200); Vitamin D,25 Hydroxy 38.4 ng/mL (30-100)
== END | disposition home or self-care (01) ==
LOC: POLAB3 13:58
PROVIDERS: PCP Family Medicine Geriatric Medicine; Visit Provider Family Medicine Geriatric Medicine
DX: I10 Essential (primary) hypertension (principal); E55.9 Vitamin D deficiency, unspecified
CPT/HCPCS: 36415; 80053; 82306; 84443

== ENCOUNTER 2024-08-09 10:49 | Emergency (ER) | payer MEDICARE, SELFPAY ==
[2024-08-09 10:50] VITALS: BP 156/84; PULSE 80; RESP 16; TEMP 36.6; O2SAT 99; BMI 28.4
--- NOTE | 2024-08-09 11:07 | EX.ED.DYSGE1 ---
HPI History of Present Illness Chief Complaint: Head Injury Narrative Narrative: Patient is a 84-year-old female with past medical history of dementia, depression, CVA who presents to the emergency department chief complaint of wanting a wound evaluation per the and daughter at bedside. Daughter at bedside states that she is on Plavix and notes that 2 nights ago she fell from her bed she hit her head but did not pass out. She states that at that point time did not feel that she needed evaluated and noted that she did have some bleeding but seem to scab over. She states that they have been keeping a shower On her head to prevent her from messing with the scab and picking at it. States that last night they did not put the shower On her head prior to bed and noted that this morning they noted there is a fair amount of blood on the sheets and wanted to have a second opinion outside of their own for evaluation of the wound on her head. Per daughter at bedside she is at her baseline mental status and has no change in this and notes that she has not had any vomiting since the event either. [facility] Medical History (Updated 08/09/24 @ 12:[address] Scottie Monroy, ) Arthritis Depression Short-term memory loss CVA (cerebral vascular accident) DDD (degenerative disc disease), lumbar Home Medications ?Medication ?Instructions ?Recorded ?Last Taken ?Type Prevagen 20 mg PO DAILY supplement 01/04/20 01/03/20 History mubvgjme-omud-kxyj 8 mg-folic 400 1 ea PO DAILY 01/04/20 01/03/20 History mcg-K 50 mcg-lutein 300 mcg tablet ergocalciferol (vitamin D2) 1,250 50,000 unit PO QMONTH #7 caps 03/07/20 Unknown Rx mcg (50,000 unit) capsule famotidine 40 mg tablet ea PO 06/20/20 Unknown History lisinopril 5 mg tablet 5 mg PO DAILY #90 tabs 05/29/22 Unknown Rx clopidogrel 75 mg tablet 75 mg PO DAILY #90 tabs 07/09/22 Unknown Rx atorvastatin 40 mg tablet 40 mg PO QHS cholesterol #90 tabs 07/15/22 Unknown Rx furosemide 20 mg tablet See Rx Instructions .Route 07/15/22 Unknown Rx .COMPLEX #20 tabs memantine ER 28 mg-donepezil 10 mg 1 ea PO DAILY #90 ea 07/15/22 Unknown Rx capsule sprinkle,ext.release 24 hr paroxetine HCl 20 mg tablet 20 mg PO DAILY #90 tabs 07/15/22 Unknown Rx cephalexin 500 mg capsule 500 mg PO BID 5 days #10 caps 08/09/24 Unknown Rx Allergy/AdvReac Type Severity Reaction Status Date / Time No Known Allergies Allergy Verified 08/09/24 10:53 Family History Father Heart disease Hypertension CVA (cerebral vascular accident) Mother Heart disease Hypertension Surgical History History of total hip replacement History of back surgery Cataract Carpal tunnel syndrome on both sides Cholecystectomy planned History of left knee replacement Social History Smoking Status: Former smoker quit date: 03/24/89 Tobacco: How many years used: 10 alcohol intake: current alcohol intake frequency: holidays/special occasions only substance use type: does not use ROS ROS ED ROS Narrative Constitutional: Denies headache, lightness, dizziness Eyes: Denies change in vision double vision blurry vision Abdomen: Denies nausea vomit diarrhea : Denies any urinary symptoms Neurological: Denies any numbness, weakness, tingling Musculoskeletal: Denies back pain, neck pain or any other bony pain Skin: Complains of cut to the top of the head EXAM Physical Exam Narrative Exam Narrative: General: Patient was lying bed rest comfortably did not appear to be acute distress Head: Patient has a 3.5 cm laceration to the top portion of her head anteriorly with no active bleeding noted, there is dried blood noted in her hair and around the site, there is a small superficial abrasion noted proximately 4 cm anteriorly to the laceration normocephalic Eyes: PERRL bilaterally, EOMI bilateral, no conjunctival injection noted Neck: Soft, supple, trachea midline, nontender to palpation midline cervical spine Cardiovascular: Regular rate Abdomen: Soft, nondistended, nontender to palpation Musculoskeletal: All bony prominences palpated joints taken full range of motion no pain elicited Extremities: +4/5 strength noted in the bilateral upper and lower extremities, radial pulses +2/4 in about extremity, no pedal edema exam Neurological: Patient is at her baseline mental status per daughter at bedside she told me that her was seen at the end of the bed in a chair and knew her daughter Skin: Warm, dry, see head Const Vital Signs: 08/09/24 10:50 08/09/24 10:53 Temperature 98 F Temperature Source Oral Pulse Rate 80 Respiratory Rate 16 Respiratory Effort Normal Blood Pressure 156/84 H Blood Pressure Mean 108 Pulse Ox 99 Oxygen Delivery Method Room Air MDM MDM MDM Narrative Medical decision making narrative: Patient is a 84-year-old female who presented to the emergency department with a chief complaint of wanting a evaluation of the cut to the top of her head. On the differential diagnose includes but not limited to laceration, abrasion. I had discussion with daughter at bedside and noted that normally after approximately 16 hours of a wound being open we do not prefer to close use we prefer them to heal by secondary intention. However given that she constantly is picking at the wound it is a rather decent size laceration and she is on Plavix we will plan to place cookie after anesthesia achieved with 1% lidocaine in the wound. A total of 3 cc of lidocaine was used for anesthesia. 5 cookie were placed patient tolerated procedure well no complications. There advised if there is a risk of infection by doing this however we will try to mitigate this risk by placing her on antibiotics. They are advised that they will need the cookie removed in approximately 5 to 7 days by her primary care physician. They are advised to return with worsening symptoms and concerns. They are agreeable this plan all question concerns answered she was discharged home in stable condition. Discharge Plan Triage Chief Complaint: Head Injury ED Provider: Scottie Monroy Dx/Rx/DC Orders Clinical Impression: Laceration of scalp, Fall Prescriptions: New cephalexin 500 mg capsule 500 mg PO BID 5 Days Qty: 10 0RF No Action ergocalciferol (vitamin D2) 1,250 mcg (50,000 unit) capsule 50,000 unit PO QMONTH Qty: 7 1RF famotidine 40 mg tablet PO Patient Comments: take 1 tablet by mouth once daily xrrduqsu-vbz-doon-FA-vit K-lut 1 EACH tablet 1 ea PO DAILY Prevagen 20 mg PO DAILY lisinopril 5 mg tablet 5 mg PO DAILY Qty: 90 3RF clopidogrel 75 mg tablet 75 mg PO DAILY Qty: 90 3RF atorvastatin 40 mg tablet 40 mg PO QHS Qty: 90 3RF furosemide 20 mg tablet See Rx Instructions .ROUTE .COMPLEX Qty: 20 0RF Dose Instruction: take 1/2 tablet by mouth once daily if needed for edema Rx Instructions: take 1/2 tablet by mouth once daily if needed for edema memantine-donepezil 28-10 mg capsule,sprinkle,ER 24hr 1 ea PO DAILY Qty: 90 3RF paroxetine HCl 20 mg tablet 20 mg PO DAILY Qty: 90 3RF Primary Care Provider: Rashawn Walsh Chi Referrals: Rashawn Walsh Chi, MD [Primary Care Provider] - Activity Restrictions/Additional Instructions: There were a total of 5 cookie placed. Take the antibiotics that were sent to your pharmacy as prescribed. Return with pus coming out of the wound or surrounding redness while on the antibiotics or any other concerns. Your family doctor can take the cookie out in approximately 5 to 7 days. Print Language: Ethiopian Disposition Disposition: Home, Self Care
[2024-08-09] MEDS: Lidocaine 1% (20 ml mdv) 20 ML Vial 10 ML INFILT (12:16)
[2024-08-09 12:21] VITALS: BP 138/78; PULSE 80; RESP 16; TEMP 36.6; O2SAT 99
== END 2024-08-09 12:21 | disposition home or self-care (01) ==
PROVIDERS: Emergency Provider Emergency Medicine; PCP Family Medicine Geriatric Medicine; Visit Provider Emergency Medicine
DX: S01.01XA Laceration without foreign body of scalp, initial encounter (principal); F03.90 Unspecified dementia, unspecified severity, without behavioral disturbance, psychotic disturbance, mood disturbance, and anxiety; Z87.891 Personal history of nicotine dependence; Z86.73 Personal history of transient ischemic attack (TIA), and cerebral infarction without residual deficits; Z79.02 Long term (current) use of antithrombotics/antiplatelets; W06.XXXA Fall from bed, initial encounter; Z79.899 Other long term (current) drug therapy; F32.A Depression, unspecified; Z96.649 Presence of unspecified artificial hip joint; Z90.49 Acquired absence of other specified parts of digestive tract; Z96.652 Presence of left artificial knee joint
CPT/HCPCS: 12002; 99282

== ENCOUNTER → 2024-12-16 | Outpatient (CLI) | payer MEDICARE, SELFPAY ==
[2024-12-16 14:39] LABS: Hematocrit 44.7 % (37-47); Hemoglobin 14.9 g/dL (12.0-15.0); Immature Granulocytes Count 0.020 X10^3/uL (0.0-0.0); Mean Corp Hgb Conc 33.3 g/dL (32-36); Mean Corpuscular Volume 92.2 fL (81-99); Mean Platelet Vol. 10.3 fl (6.2-12.0); NRBC Flagged by Analyzer 0 % (0-5); Platelet Count 273 K/mm3 (150-450); RBC Distribution Width CV 12.8 % (11.6-14.6); RBC Distribution Width SD 43.3 fl (35.1-43.9); Red Blood Count 4.85 M/mm3 (4.2-5.4); White Blood Count 9.0 K/mm3 (4.4-11.0)
[2024-12-16 16:11] LABS: Vitamin D,25 Hydroxy 39.8 ng/mL (30-100)
[2024-12-16 16:19] LABS: AST(SGOT) 23 U/L (<=31); Alanine Aminotransfer ALT/SGPT 11 U/L (<=34); Albumin, Serum 3.6 g/dL (3.4-4.8); Alkaline Phosphatase 132 U/L (35-104); Anion Gap 19 (5-15); BUN 8 mg/dL (4-19); BUN/Creat Ratio 10.2 RATIO (10-20); Calcium,Total 9.6 mg/dL (7.6-11.0); Carbon Dioxide 17.4 mmol/L (21.0-32.0); Chloride 105 mmol/L (98-108); Globulin 3.3 g/dL (2.2-4.2); Glucose 104 mg/dL (70-99); Potassium 4.1 mmol/L (3.3-5.1)
[2024-12-16 22:17] LABS: Xtra Tube Kwok EXTRA TUBE
== END | disposition home or self-care (01) ==
LOC: POLAB3 14:17
PROVIDERS: PCP Family Medicine Geriatric Medicine; Visit Provider Family Medicine Geriatric Medicine
DX: I10 Essential (primary) hypertension (principal); E03.9 Hypothyroidism, unspecified; E55.9 Vitamin D deficiency, unspecified
CPT/HCPCS: 36415; 80053; 82306; 84443; 85025